=== PATIENT | male | born 1940 | race Two or more races ===

== ENCOUNTER 2018-08-12 17:51 | Inpatient (IN) | payer MEDICARE, MEDICAID ==
[~2018-08-12] VITALS: Ht 188 cm; Wt 56.7 kg
--- NOTE | 2018-08-12 18:01 | NUR ---
BIB friend for psych eval, increase agitation, visual hallucination per friend's report. PT WILL NOT ANSWER ANY QUESTIONS. LEFT URINAL TO COLLECT SAMPLE. SKIN INTACT, NO ACUTE DISTRESS NOTED. READY FOR EVAL.
--- NOTE | 2018-08-12 18:35 | NUR ---
Called cleaner housekeeping for a sitter, not sitter available at this time.
[2018-08-12 19:04] LABS: CALCIUM, SERUM 9.6 mg/dL (8.5-10.1); CARBON DIOXIDE 25 mmol/L (21-32); CHLORIDE 104 mmol/L (98-107); CREATININE 1.4 mg/dL (0.6-1.3); GLUCOSE 81 mg/dL (74-106); POTASSIUM 3.8 mmol/L (3.5-5.1); SODIUM SERUM 144 mmol/L (136-145); UREA NITROGEN, BLOOD 29 mg/dL (7-18)
[2018-08-12 19:08] LABS: BASOPHILS % (AUTO) 0.7 % (0.0-2.0); EOSINOPHILS % (AUTO) 0.1 % (0.0-6.0); HEMATOCRIT 42 % (39-51); LYMPHOCYTES # (AUTO) 1.1 /CMM (0.8-4.8); LYMPHOCYTES % (AUTO) 17.4 % (20.0-44.0); MEAN CORPUSCULAR HGB CONC 33 g/dl (31.0-36.0); MEAN CORPUSCULAR VOLUME 93 fL (80-96); MONOCYTES # (AUTO) 0.7 /CMM (0.1-1.30); MONOCYTES % (AUTO) 10.4 % (2.0-12.0); NEUTROPHILS # (AUTO) 4.6 /CMM (1.8-8.9); NEUTROPHILS % (AUTO) 71.4 % (43.0-81.0); PLATELET COUNT (AUTO) 196 /CMM (150-450); RED BLOOD CELL COUNT(AUTO) 4.54 MIL/uL (4.5-6.0); WHITE BLOOD COUNT (AUTO) 6.5 K/uL (4.3-11.0)
[2018-08-12 19:10] LABS: ALANINE AMINOTRANSFERASE 28 U/L (12-78); ALBUMIN 3.5 g/dL (3.4-5.0); ALCOHOL, BLOOD < 3 mg/dL (0-0); ALKALINE PHOSPHATASE 87 U/L (46-116); ASPARTATE AMINOTRANSFERASE 28 U/L (15-37); BILIRUBIN,DIRECT 0.1 mg/dL (0.0-0.2); BILIRUBIN,TOTAL 0.8 mg/dL (0.2-1.0)
[2018-08-12 19:14] LABS: ACETAMINOPHEN < 2 ug/ml (10-30)
--- NOTE | 2018-08-12 19:48 | NUR ---
BREAK OFF WORKER WANTED FOR SITTER
--- NOTE | 2018-08-12 19:54 | NUR ---
BED 216
--- NOTE | 2018-08-12 20:16 | NUR ---
Patient is resting comfortably in bed with eyes closed. Easily aroused. VSS
--- NOTE | 2018-08-12 22:40 | NUR ---
REPORT GIVEN TO RN FOR 213-A
[2018-08-12] MEDS ORDERED: LORA0.5T PO (22:45)
[2018-08-12] MEDS ORDERED: PARO40TA4 PO (22:45)
[2018-08-12] MEDS ORDERED: METO25TA6 PO (22:45)
[2018-08-12] MEDS ORDERED: DIPH25CA46 PO (22:45)
[2018-08-12] MEDS ORDERED: FERR325T23 PO (22:45)
[2018-08-12] MEDS ORDERED: HYDR12.5 PO (22:45)
[2018-08-12] MEDS ORDERED: TEMA15CA PO (22:45)
[2018-08-12] MEDS ORDERED: RISP1TAB7 PO (22:45)
[2018-08-12] MEDS ORDERED: TENO300T5 PO (22:45)
[2018-08-12] MEDS ORDERED: DIVA500T4 PO (22:45)
[2018-08-12] MEDS ORDERED: MULT-659 PO (22:45)
[2018-08-12] MEDS ORDERED: QUET100T PO (22:45)
[2018-08-12] MEDS ORDERED: LEVE500T9 PO (22:45)
--- NOTE | 2018-08-12 23:30 | NUR ---
ADMITTED THIS 77 YEARS OLD MALE FROM E.R PATIENT WAS PUT ON 5150 HOLD DUE TO INCREASED AGITATIONS, TOWARDS STAFF REFUSING THE MEDICATIONS, GRAVELY DISABLE, PATIENT IS ALERT ORIENTED X 1 TO NAME ONLY DENIES ANY PAIN OR DISCOMFORT AT THIS TIME ON BED REST, PATIENT REFUSED TO SIGN THE CONSENT PAPER, ADVISEMENT EXPLAIN AND SERVE TO THE PATIENT WITH HOSPITAL POLICY. BODY ASSESSMENT IS DONE, NO OPEN WOUND NOTED ONLY PATIENT HAS A VERY DRY SKIN. PIC IS TAKEN AND PLACED IN CHART . ALL MEDS IN COMPUTER NEEDS TO BE RECON WILL CONTINUES TO MONITOR THE PATIENT FOR SAFETY AND FALL
--- NOTE | 2018-08-12 23:45 | NUR ---
GPS RN NOTE, PATIENT NEEDS MEDICATION RECONCILIATION. PAGED [facility] AND INFORMED BILYL PIEDRA OF MY FINDINGS. BILLY PIEDRA SAID HE WILL APPROVE PATIENT MEDICATION IN THE A.M.. ALL ORDERS NOTED AND CARRIED OUT. WILL CONTINUE TO MONITOR THIS PATIENT.
[2018-08-13] MEDS ORDERED: ACETAMINOPHEN 325 MG TABLET PO PRN (00:30)
[2018-08-13] MEDS ORDERED: LORAZEPAM 0.5 MG TABLET PO PRN (00:30)
[2018-08-13] MEDS ORDERED: MAGNESIUM HYDROXIDE 30 ML UDC PO PRN (00:30)
[2018-08-13] MEDS ORDERED: MAG HYDROX/AL HYDROX/SIMETH 30 ML UDC PO PRN (00:30)
[2018-08-13 00:34] VITALS: BP 131/71
[2018-08-13] MEDS ORDERED: Z GUARD REMEDY 2 OZ OINT TP PRN (02:30)
[2018-08-13 08:00] VITALS: BP 111/59
[2018-08-13] MEDS: ENSURE ENLIVE CHOC 237 ML CAN PO SCH ×3 (08:53→17:00)
[2018-08-13] MEDS ORDERED: DIVA500T4 PO (09:14)
--- NOTE | 2018-08-13 12:06 | NUR ---
NOEMÍ contacted pts friend Gail [phone] for collateral information and discharge planning. Friend stated that pt rents a room in her home and that he has not contact with his family that lives in [place]. Gail stated that she has attempted to contact pts family to inform them of pts current hospitalization and they have not returned her calls/ Gail stated pt stopped taking his psych medications 2 months ago and that is when al his psychiatric symptoms began. Reynolds informed NOEMÍ that she does not know much of pts history and has been his friend for a couple of years. Gail wishes for pt to return to her home and she stated she will pick pt up when stable for discharge.
--- NOTE | 2018-08-13 12:44 | NUR ---
INITIAL DISCHARGE NOTE: Per friend Gail [phone] pt rents a room at her [place] [id number] [facility] [id number] and wishes for him to return. NOEMÍ will help form a safe and proper discharge in collaboration with .
[2018-08-13] MEDS: OLANZAPINE 5 MG/TAB.RAPDIS PO SCH ×2 (14:39→20:29)
[2018-08-13 16:00] VITALS: BP 129/93
--- NOTE | 2018-08-13 18:52 | NUR ---
GPS NOTE THE PATIENT NOTED TO HAVE POOR APPETITE, HOWEVER, DINNER TIME HE ATE COMPARABLY MORE THAN DURING AT BREAKFAST AND LUNCH. THE PATIENT ATE 30% DURING DINNER. THE PATIENT NEEDS ENCOURAGEMENT TO INCREASE PO INTAKE. UPCOMING SHIFT IS ENDORSED.
[2018-08-13] MEDS ORDERED: diphenhydrAMINE HCL 25 MG CAPSULE PO PRN (19:30)
[2018-08-13 20:00] VITALS: BP 99/56
[2018-08-13] MEDS: LEVETIRACETAM (250 MG) 250 MG TABLET PO SCH (21:16)
[2018-08-13 22:00] VITALS: BP 105/62
[2018-08-14] MEDS: ENSURE ENLIVE CHOC 237 ML CAN PO SCH ×3 (08:00→17:00)
[2018-08-14] MEDS: MULTIVITAMINS,THERAGRAN 1 UDTAB TABLET PO SCH (08:58)
[2018-08-14] MEDS: LEVETIRACETAM (250 MG) 250 MG TABLET PO SCH ×3 (08:59→20:42)
[2018-08-14] MEDS: TENOFOVIR DISOPROXIL FUMARATE 300 MG TABLET PO SCH (09:00)
[2018-08-14] MEDS: DIVALPROEX SODIUM 500 MG TABLET.DR PO SCH ×4 (09:00→17:00)
[2018-08-14] MEDS: METOPROLOL TARTRATE 25 MG TABLET PO SCH (09:00)
[2018-08-14] MEDS: FERROUS SULFATE (325 MG) 325 MG/TAB TABLET PO SCH ×4 (09:00→17:00)
[2018-08-14] MEDS: OLANZAPINE 5 MG/TAB.RAPDIS PO SCH ×3 (09:00→17:00)
[2018-08-14] MEDS: HYDROCHLOROTHIAZIDE 25 MG TABLET PO SCH (09:00)
--- NOTE | 2018-08-14 15:35 | NUR ---
SUPPORTIVE COUNSELING: Patient has not been eating and refusing medication. Pt is responding to internal stimuli he makes no eye contact when approached and grunts when SW turns his back at him. Pts mood is agitated/aggressive with blunted affect. Pts is uncooperative with treatment.
[2018-08-14 16:00] VITALS: BP 114/61
[2018-08-14 16:30] VITALS: BP 114/61
--- NOTE | 2018-08-14 16:45 | NUR ---
Pt is refusing medication, food and care, Dr Faustin in unit and it was made him aware, pt has orders for urine analysis, unable to obtained.
[2018-08-14 19:57] VITALS: BP 136/70
[2018-08-14] MEDS: TEMAZEPAM 7.5 MG CAPSULE PO PRN (20:42)
[2018-08-15 08:00] VITALS: BP 105/73
[2018-08-15] MEDS: ENSURE ENLIVE CHOC 237 ML CAN PO SCH ×3 (08:00→17:00)
[2018-08-15] MEDS: MULTIVITAMINS,THERAGRAN 1 UDTAB TABLET PO SCH (09:00)
[2018-08-15] MEDS: METOPROLOL TARTRATE 25 MG TABLET PO SCH (09:00)
[2018-08-15] MEDS: LEVETIRACETAM (250 MG) 250 MG TABLET PO SCH ×2 (09:00→21:50)
[2018-08-15] MEDS: OLANZAPINE 5 MG/TAB.RAPDIS PO SCH ×2 (09:00→17:00)
[2018-08-15] MEDS: TENOFOVIR DISOPROXIL FUMARATE 300 MG TABLET PO SCH (09:00)
[2018-08-15] MEDS: DIVALPROEX SODIUM 500 MG TABLET.DR PO SCH ×4 (09:00→17:00)
[2018-08-15] MEDS: HYDROCHLOROTHIAZIDE 25 MG TABLET PO SCH (09:00)
[2018-08-15] MEDS: FERROUS SULFATE (325 MG) 325 MG/TAB TABLET PO SCH ×4 (09:00→17:00)
--- NOTE | 2018-08-15 10:30 | NUR ---
ALERT AND ORIENTED X1.UP IN GABE CHAIR,BOTH PSYCH MD AND MEDICAL MD AWARE PT. REFUSING ALL MEDS.
[2018-08-15 16:00] VITALS: BP 114/83
--- NOTE | 2018-08-15 17:46 | NUR ---
REFUSED ALL MEDS TODAY.
--- NOTE | 2018-08-15 18:54 | NUR ---
STILL AWAITING TO OBTAIN UA.
--- NOTE | 2018-08-15 19:30 | NUR ---
GPS RN NOTE, RECEIVED PATIENT AWAKE AND IN GABE CHAIR, NO S/S OR COMPLAINTS OF PAIN AT THIS TIME. PATIENT IS DISPLAYING NO S/S OF APPARENT DISTRESS AT THIS TIME. PATIENT BREATHING IS UNLABORED WITH EQUAL RISE AND FALL OF THE CHEST. PATIENT IS ALERT AND ORIENTED X 1-2 ON ROOM AIR WITH A SPO2 OF 95%. PATIENT IS MED SELECTIVE, CONFUSED AT TIMES, DISORGANIZED, DEPRESSED, COOPERATIVE, UNKEPT AND NEEDS REORIENTATION. PATIENT DENIES SUICIDE AND HOMICIDAL IDEATIONS AT THIS TIME. PATIENT ASSISTED WITH TURNING AND REPOSITIONING Q2HR AND PRN FOR COMFORT AND CIRCULATION. PATIENT HAS NO NEEDS AT THIS TIME. PATIENT EDUCATED ON THE USE OF THE CALL CORBETT. PATIENT BED SIDE RAILS ARE UP X 2 FOR SAFETY, BED IS LOCKED AND LOW. WILL CONTINUE TO MONITOR AND MAINTAIN SAFETY Q15 MIN WITH THE HELP OF STAFF.
[2018-08-15 20:00] VITALS: BP 129/81
--- NOTE | 2018-08-15 21:50 | NUR ---
GPS RN NOTE, PATIENT REFUSED TO TAKE KEPPRA 500 PO Q12HR. OFFERED KEPPRA THREE TIME BUT STILL PATIENT REFUSED STATING, " NO I'M NOT TAKING ANYTHING WITH FOR YOU ". EDUCATED PATIENT ON THE RISKS AND BENEFITS OF TAKING AND REFUSING AFOREMENTIONED MEDICATION. WILL CONTINUE TO MONITOR THIS PATIENT.
[2018-08-15] MEDS: TEMAZEPAM 7.5 MG CAPSULE PO PRN (22:03)
--- NOTE | 2018-08-15 22:03 | NUR ---
GPS RN NOTE, PATIENT REFUSED TO TAKE RESTORIL 7.5 MG PO HS PRN. OFFERED RESTORIL THREE TIME BUT STILL PATIENT REFUSED STATING, " I'M NOT TAKING ANY MEDICATION FROM YOU ". EDUCATED PATIENT ON THE RISKS AND BENEFITS OF TAKING AND REFUSING AFOREMENTIONED MEDICATION. WILL CONTINUE TO MONITOR THIS PATIENT.
[2018-08-16 06:29] LABS: BASOPHILS % (AUTO) 0.4 % (0.0-2.0); EOSINOPHILS % (AUTO) 0.1 % (0.0-6.0); HEMATOCRIT 40 % (39-51); HEMOGLOBIN 13.3 g/dL (13.5-17.5); LYMPHOCYTES # (AUTO) 1.2 /CMM (0.8-4.8); LYMPHOCYTES % (AUTO) 27.6 % (20.0-44.0); MEAN CORPUSCULAR HGB CONC 33 g/dl (31.0-36.0); MEAN CORPUSCULAR VOLUME 93 fL (80-96); MONOCYTES # (AUTO) 0.5 /CMM (0.1-1.30); MONOCYTES % (AUTO) 10.5 % (2.0-12.0); NEUTROPHILS # (AUTO) 2.7 /CMM (1.8-8.9); NEUTROPHILS % (AUTO) 61.4 % (43.0-81.0); PLATELET COUNT (AUTO) 221 /CMM (150-450); RED BLOOD CELL COUNT(AUTO) 4.35 MIL/uL (4.5-6.0); WHITE BLOOD COUNT (AUTO) 4.3 K/uL (4.3-11.0)
[2018-08-16 06:43] LABS: ALANINE AMINOTRANSFERASE 25 U/L (12-78); ALBUMIN 3.3 g/dL (3.4-5.0); ALKALINE PHOSPHATASE 80 U/L (46-116); ASPARTATE AMINOTRANSFERASE 25 U/L (15-37); BILIRUBIN,TOTAL 0.8 mg/dL (0.2-1.0); CALCIUM, SERUM 9.6 mg/dL (8.5-10.1); CARBON DIOXIDE 29 mmol/L (21-32); CHLORIDE 104 mmol/L (98-107); CREATININE 1.7 mg/dL (0.6-1.3); GLUCOSE 106 mg/dL (74-106); MAGNESIUM 2.1 mg/dL (1.8-2.4); PHOSPHORUS 3.2 mg/dL (2.5-4.9); POTASSIUM 3.8 mmol/L (3.5-5.1); SODIUM SERUM 142 mmol/L (136-145); TOTAL PROTEIN, SERUM 8.1 g/dL (6.4-8.2); UREA NITROGEN, BLOOD 36 mg/dL (7-18)
[2018-08-16 06:45] LABS: CREATINE KINASE, TOTAL 67 U/L (39-308)
[2018-08-16 08:00] VITALS: BP 119/72
[2018-08-16] MEDS: ENSURE ENLIVE CHOC 237 ML CAN PO SCH ×3 (08:00→17:00)
--- NOTE | 2018-08-16 08:56 | NUR ---
RN NOTES PT REFUSING ALL MEDICATION AT THIS TIME. WILL CONTINUE TO FOLLOW UP.
[2018-08-16] MEDS: HYDROCHLOROTHIAZIDE 25 MG TABLET PO SCH (09:00)
[2018-08-16] MEDS: DIVALPROEX SODIUM 500 MG TABLET.DR PO SCH ×3 (09:00→17:00)
[2018-08-16] MEDS: TENOFOVIR DISOPROXIL FUMARATE 300 MG TABLET PO SCH (09:00)
[2018-08-16] MEDS: LEVETIRACETAM (250 MG) 250 MG TABLET PO SCH ×2 (09:00→21:00)
[2018-08-16] MEDS: OLANZAPINE 5 MG/TAB.RAPDIS PO SCH ×2 (09:00→17:00)
[2018-08-16] MEDS: MULTIVITAMINS,THERAGRAN 1 UDTAB TABLET PO SCH (09:00)
[2018-08-16] MEDS: METOPROLOL TARTRATE 25 MG TABLET PO SCH (09:00)
[2018-08-16] MEDS: FERROUS SULFATE (325 MG) 325 MG/TAB TABLET PO SCH ×3 (09:00→17:00)
--- NOTE | 2018-08-16 12:21 | NUR ---
RN NOTES INFORMED JOHN RASMUSSEN NP. PT PO INTAKE DECREASED, PATIENT REFUSING ALL MEDICATIONS, AND INCREASED BUN. NO NEW ORDERS AT THIS TIME.
[2018-08-16] MEDS ORDERED: IV NS 0.9% 1,000 ML IV PRN (13:00)
[2018-08-16 16:00] VITALS: BP 117/71
--- NOTE | 2018-08-16 19:30 | NUR ---
GPS RN NOTE, RECEIVED PATIENT AWAKE AND IN GABE CHAIR, NO S/S OR COMPLAINTS OF PAIN AT THIS TIME. PATIENT IS DISPLAYING NO S/S OF APPARENT DISTRESS AT THIS TIME. PATIENT BREATHING IS UNLABORED WITH EQUAL RISE AND FALL OF THE CHEST. PATIENT IS ALERT AND ORIENTED X 1-2 ON ROOM AIR WITH A SPO2 OF 95%. PATIENT IS REFUSING, CONFUSED AT TIMES, DISORGANIZED, DEPRESSED, COOPERATIVE, UNKEPT AND NEEDS REORIENTATION. PATIENT DENIES SUICIDE AND HOMICIDAL IDEATIONS AT THIS TIME. PATIENT ASSISTED WITH TURNING AND REPOSITIONING Q2HR AND PRN FOR COMFORT AND CIRCULATION. PATIENT HAS NO NEEDS AT THIS TIME. PATIENT EDUCATED ON THE USE OF THE CALL CORBETT. PATIENT BED SIDE RAILS ARE UP X 2 FOR SAFETY, BED IS LOCKED AND LOW. WILL CONTINUE TO MONITOR AND MAINTAIN SAFETY Q15 MIN WITH THE HELP OF STAFF.
--- NOTE | 2018-08-16 19:35 | NUR ---
GPS RN NOTE, PATIENT IS ATTEMPTING TO PULL OUT IV LINE THAT IS MEDICALLY NECESSARY FOR TREATMENT. ATTEMPTED HIDING IV LINE, REORIENTATION, AND INCREASE MONITORING. BUT STILL PATIENT IS ATTEMPTING TO PULL OUT IV LINE THAT IS MEDICALLY NECESSARY FOR TREATMENT. PAGED [facility] AND INFORMED RUPINDER PIEDRA OF MY FINDINGS. RUPINDER PIEDRA ORDERED ACUTE MEDICAL RESTRAINTS. RIGHT AND LEFT SOFT WRIST RESTRAINTS APPLIED TO PATIENT. NEXT OF KIN LESLIE WRIGHT INFORMED. ALL ORDERS NOTED AND CARRIED. WILL CONTINUE TO MONITOR THIS PATIENT.
[2018-08-16 19:39] VITALS: BP 120/43
--- NOTE | 2018-08-16 21:00 | NUR ---
GPS RN NOTE, PATIENT REFUSED TO HAVE PICTURES TAKEN TODAY. EDUCATED PATIENT ON HOSPITAL POLICY OF TAKING PICTURES. WILL CONTINUE TO MONITOR THIS PATIENT.
--- NOTE | 2018-08-16 21:34 | NUR ---
GPS RN NOTE, PATIENT REFUSED TO TAKE KEPPRA 500 PO Q12HR. OFFERED KEPPRA THREE TIME BUT STILL PATIENT REFUSED STATING, " NO I'M NOT TAKING ANYTHING MEDICATION ". EDUCATED PATIENT ON THE RISKS AND BENEFITS OF TAKING AND REFUSING AFOREMENTIONED MEDICATION. WILL CONTINUE TO MONITOR THIS PATIENT.
[2018-08-16 23:04] LABS: CREATININE, URINE 299.4 MG/DL (30.0-125.0); URINE TOTAL PROTEIN 47.1 mg/dL (0-11.9)
[2018-08-16 23:09] LABS: APPEARANCE,URINE CLEAR (CLEAR); BILIRUBIN,URINE 1+ (NEGATIVE); BLOOD, URINE NEGATIVE Ery/uL (NEGATIVE); COLOR,URINE DARK YELLO (YELLOW); KETONES,URINE TRACE (NEGATIVE); LEUKOCYTE ESTERASE ,URINE NEGATIVE (NEGATIVE); NITRITE, URINE NEGATIVE (NEGATIVE); PROTEIN,URINE TRACE mg/dl (NEGATIVE); UGLUCOSE NEGATIVE (NEGATIVE); UROBILINOGEN,URINE 0.2 EU/dL (0.2)
[2018-08-16 23:15] LABS: BACTERIA,URINE None seen /HPF (None Seen); EOSINOPHIL,URINE None Seen; RBC,URINE 0-2 /HPF (0-2); SQUAMOUS EPITHELIAL CELL,UR Few /HPF (None Seen); WBC,URINE 0-2 /HPF (0-3)
--- NOTE | 2018-08-16 23:43 | NUR ---
GPS RN NOTE, PATIENT NO LONGER MEETS CLINICAL JUSTIFICATION FOR RESTRAINTS. RESTRAINTS DISCONTINUED. WILL CONTINUE TO MONITOR THIS PATIENT.
[2018-08-17 08:00] VITALS: BP 117/59
[2018-08-17] MEDS: ENSURE ENLIVE CHOC 237 ML CAN PO SCH ×2 (08:00→12:00)
[2018-08-17] MEDS: FERROUS SULFATE (325 MG) 325 MG/TAB TABLET PO SCH ×2 (08:42→13:00)
[2018-08-17] MEDS: HYDROCHLOROTHIAZIDE 25 MG TABLET PO SCH (08:42)
[2018-08-17] MEDS: DIVALPROEX SODIUM 500 MG TABLET.DR PO SCH ×2 (08:42→13:00)
[2018-08-17 08:43] VITALS: BP 117/59
[2018-08-17] MEDS: METOPROLOL TARTRATE 25 MG TABLET PO SCH (08:43)
[2018-08-17] MEDS: LEVETIRACETAM (250 MG) 250 MG TABLET PO SCH (08:43)
[2018-08-17] MEDS: MULTIVITAMINS,THERAGRAN 1 UDTAB TABLET PO SCH (08:44)
[2018-08-17] MEDS: OLANZAPINE 5 MG/TAB.RAPDIS PO SCH (08:44)
[2018-08-17] MEDS: TENOFOVIR DISOPROXIL FUMARATE 300 MG TABLET PO SCH (08:44)
[2018-08-17 08:45] LABS: CALCIUM, SERUM 10.3 mg/dL (8.5-10.1); CARBON DIOXIDE 27 mmol/L (21-32); CHLORIDE 108 mmol/L (98-107); CREATININE 1.7 mg/dL (0.6-1.3); GLUCOSE 84 mg/dL (74-106); MAGNESIUM 2.3 mg/dL (1.8-2.4); PHOSPHORUS 4.2 mg/dL (2.5-4.9); POTASSIUM 5.9 mmol/L (3.5-5.1); SODIUM SERUM 146 mmol/L (136-145); UREA NITROGEN, BLOOD 48 mg/dL (7-18)
[2018-08-17 08:49] LABS: BASOPHILS % (AUTO) 0.5 % (0.0-2.0); EOSINOPHILS % (AUTO) 0.1 % (0.0-6.0); HEMATOCRIT 38 % (39-51); HEMOGLOBIN 12.8 g/dL (13.5-17.5); LYMPHOCYTES # (AUTO) 1.4 /CMM (0.8-4.8); LYMPHOCYTES % (AUTO) 29.3 % (20.0-44.0); MEAN CORPUSCULAR HGB CONC 33 g/dl (31.0-36.0); MEAN CORPUSCULAR VOLUME 93 fL (80-96); MONOCYTES # (AUTO) 0.8 /CMM (0.1-1.30); MONOCYTES % (AUTO) 15.2 % (2.0-12.0); NEUTROPHILS # (AUTO) 2.7 /CMM (1.8-8.9); NEUTROPHILS % (AUTO) 54.9 % (43.0-81.0); PLATELET COUNT (AUTO) 206 /CMM (150-450); RED BLOOD CELL COUNT(AUTO) 4.12 MIL/uL (4.5-6.0); WHITE BLOOD COUNT (AUTO) 4.9 K/uL (4.3-11.0)
[2018-08-17] MEDS ORDERED: SODIUM POLYSTYRENE SULFONATE 15 G/60 ML BOTTLE PO ONE (10:00)
[2018-08-17 10:13] LABS: LYMPHOCYTES % (MANUAL) 30 % (16-48); MONOCYTES % (MANUAL) 21 % (0-11.0); NEUTROPHILS % (MANUAL) 49 (42-76)
--- NOTE | 2018-08-17 11:08 | NUR ---
RN-CO: NOTIFIED DR PATE REGARDING THE BUN 48 AND K LEVEL OF 5.9. MD ORDERED TO DISCHARGE PATIENT TO TELEMETRY AND CONTINUE LEGAL HOLD.
--- NOTE | 2018-08-17 13:47 | NUR ---
RN NOTE:PATIENT SEEN BY CIERA DE LOS SANTOS WITH NEW ORDER TO DISCHARGE TO TELEMETRY NOTIFIED PATIENT DISCHARGE WITH 14 DAYS HOLD AND SITTER TO ROOM 310 REPORT GIVEN TO JENNIFER RANGEL ALL BELONGINGS RETURNED TO PATIENT .
[2018-08-17] MEDS ORDERED: OLAN7.5T3 PO (15:39)
[2018-08-17] MEDS ORDERED: ACET-868 PO (15:39)
[2018-08-17] MEDS ORDERED: MULT-24 PO (15:39)
[2018-08-17] MEDS ORDERED: LACT-246 PO (15:39)
[2018-08-17] MEDS ORDERED: ALLA266C2 TP (15:39)
[2018-08-17] MEDS ORDERED: MAGN400O6 PO (15:39)
[2018-08-17] MEDS ORDERED: TEMA7.5C12 PO (15:39)
[2018-08-17] MEDS ORDERED: MAG30ORA PO (15:39)
[2018-08-18 08:07] LABS: *SPE A/G RATIO 0.8 (0.7-1.7); *SPE ALBUMIN 3.3 g/dL (2.9-4.4); *SPE ALPHA-1-GLOBULIN 0.3 g/dL (0.0-0.4); *SPE ALPHA-2-GLOBULIN 0.7 g/dL (0.4-1.0); *SPE BETA GLOBULIN 0.9 g/dL (0.7-1.3); *SPE GLOBULIN, TOTAL 4.1 g/dL (2.2-3.9); *SPE M-SPIKE 0.8 g/dL (Not Observed); *SPEGAMMA GLOBULIN 2.2 g/dL (0.4-1.8)
--- NOTE | 2018-08-18 08:17 | NUR ---
DISCHARGE NOTE: Pt was discharged to the Telemetry Unit due to Hyperkalemia on 08/17/18. Pt remains on a 5250.
== END 2018-08-17 14:00 | disposition short-term general hospital (02) | DRG 885 ==
LOC: ER 17:59 → GPS 22:03
PROVIDERS: ADMIT Psychiatry & Neurology Psychiatry; ATTEND Nurse Practitioner Acute Care
DX: F20.0 Paranoid schizophrenia (principal); N18.9 Chronic kidney disease, unspecified; N17.0 Acute kidney failure with tubular necrosis; E44.0 Moderate protein-calorie malnutrition; R64 Cachexia; Z68.1 Body mass index [BMI] 19.9 or less, adult; F29 Unspecified psychosis not due to a substance or known physiological condition; I12.9 Hypertensive chronic kidney disease with stage 1 through stage 4 chronic kidney disease, or unspecified chronic kidney disease; E87.5 Hyperkalemia; F32.9 Major depressive disorder, single episode, unspecified; F41.9 Anxiety disorder, unspecified; R32 Unspecified urinary incontinence; R41.82 Altered mental status, unspecified; F03.90 Unspecified dementia, unspecified severity, without behavioral disturbance, psychotic disturbance, mood disturbance, and anxiety; M62.84 Sarcopenia; Z91.14 Patient's other noncompliance with medication regimen
CPT/HCPCS: 36415; 80048-TC; 80053-TC; 80076-TC; 81000-TC; 82550-TC; 82570-TC; 83735-TC; 83970; 84100-TC; 84155; 84155-TC; 84165; 84300-TC; 85025-TC; 87081-TC; A4349; A6402; G0480; J7030

== ENCOUNTER 2018-08-17 12:38 | Inpatient (IN) | payer MEDICARE, MEDICAID ==
[~2018-08-17] VITALS: Ht 188 cm; Wt 56.3 kg
[~2018-08-17 12:38] MED LIST: DIPH25CA46 PO; DIVA500T4 PO; FERR325T23 PO; HYDR12.5 PO; LEVE500T9 PO; LORA0.5T PO; METO25TA6 PO; MULT-659 PO; TENO300T5 PO
--- NOTE | 2018-08-17 14:00 | NUR ---
YARD CALLER NOTES PATIENT ADMITTED FROM GPS 77 MALE ON Dx.OF HYPERKALEMIA TELE. TELE MONITOR ON SR-100. PATIENT ON 5250 HOLD, REFUSING EAT AND DRINK. PATIENT VERY LABILE, PARANOID, DELUSIONAL HEARING VOICES. PATIENT WAS COMPLAINING OF PAIN BY UNABLE TO VERBALIZED WHERE. V/S TAKEN BP -137/71, P-103, R-20, T-97.7, O2-95 ROOM AIR. SKIN ASSESSMENT DONE DRY SCALY SKIN, ALSO PATIENT HAS EDEMA BILATERAL LOWER FOOTS, AND UPPER CHEST. NEEDS ATTENDED AND ANTICIPATED, DVT PUMP ON. DR SOFIA AWARE OF NEW PATIENT AND MEDICATION. 1:1 SITTER NEXT TO THE BED FOR SAFETY. CALL LIGHT WITHIN TO REACH. CONTINUED MONITORING.
[2018-08-17 14:34] VITALS: BP 137/71
--- NOTE | 2018-08-17 15:00 | NUR ---
RN NOTES PATIENT ON SOFT RESTRAIN BECAUSE OF TRYING TO PULL IV ACCESS, AND CLIMBING OUT OF BED. INFUSING D5 1/2 NS AT 75 ML/HR INTACT ON RIGHT AC AREA. PATIENT VERY PARANOID, YELLING, ON O2-2L NC, CHECKED CIRCULATION Q 2 HR. 1:1 SITTER NEXT TO THE BED FOR SAFETY. CONTINUED MONITORING.
[2018-08-17] MEDS ORDERED: ACET-868 PO (15:39)
[2018-08-17] MEDS ORDERED: TEMA7.5C12 PO (15:39)
[2018-08-17] MEDS ORDERED: MAG30ORA PO (15:39)
[2018-08-17] MEDS ORDERED: MAGN400O6 PO (15:39)
[2018-08-17] MEDS ORDERED: ALLA266C2 TP (15:39)
[2018-08-17] MEDS ORDERED: MULT-24 PO (15:39)
[2018-08-17] MEDS ORDERED: LACT-246 PO (15:39)
[2018-08-17] MEDS ORDERED: OLAN7.5T3 PO (15:39)
[2018-08-17] MEDS ORDERED: ACETAMINOPHEN 325 MG TABLET PO PRN (17:00)
[2018-08-17] MEDS: ENSURE ENLIVE 237 ML LIQUID (VANILLA) PO SCH (17:00)
[2018-08-17] MEDS: DIVALPROEX SODIUM 500 MG TABLET.DR PO SCH (17:00)
[2018-08-17] MEDS ORDERED: MAG HYDROX/AL HYDROX/SIMETH 30 ML UDC PO PRN (17:00)
[2018-08-17] MEDS ORDERED: HYDROCODONE/APAP 5/325MG 1 EACH TABLET PO PRN (17:00)
[2018-08-17] MEDS ORDERED: ZOLPIDEM TARTRATE 5 MG TABLET PO PRN (17:00)
[2018-08-17] MEDS ORDERED: Z GUARD REMEDY 2 OZ OINT TP PRN (17:00)
[2018-08-17] MEDS ORDERED: MAGNESIUM HYDROXIDE 30 ML UDC PO PRN (17:00)
[2018-08-17] MEDS ORDERED: ONDANSETRON HCL/PF 4 MG/2 ML VIAL IVP PRN (17:00)
--- NOTE | 2018-08-17 17:00 | NUR ---
RN NOTES PATIENT REFUSED 17OO SCHEDULED MEDICATION, ALSO REFUSED KAYEXALATE X1 ORDER, Dr. WILSON NOTIFIED NO NEW ORDER. PATIENT ALSO REFUSED EAT, OR DRINK, INFUSING D5 0.45 NS AT 75 ML/HR INTACT ON RIGHT AC AREA INTACT. DVT PUMP ON. 1;1 SITTER NEXT TO THE BED FOR SAFETY. CONTINUED MONITORING.
[2018-08-17] MEDS: IV D5/0.45 NACL 1,000 ML IV PRN (17:14)
[2018-08-17] MEDS: SODIUM POLYSTYRENE SULFONATE 15 G/60 ML BOTTLE PO ONE ×2 (18:04→18:23)
--- NOTE | 2018-08-17 18:30 | NUR ---
RN NOTES PATIENT IN THE BED TALKING SELF STILL TRYING TO GET OUT OF BED. BILATERAL UPPER SOFT WRIST RESTRAIN ON, CIRCULATION CHECKED. 1;1 SITTER NEXT TO THE BED FOR SAFETY. ENDORSED ONCOMING NURSE FOR PLAN OF CARE.
--- NOTE | 2018-08-17 19:30 | NUR ---
MANAGER GROUP OPENING NOTES: RECEIVED PT ON 2LPM VIA NC. PT HAS SITTER AT BEDSIDE. PT HAS BILATERAL SOFT WRIST RESTRAINTS WELL. PT BLABBERING AND TALKING AND SCREAMING NONSENSE. PT SCREAMING AND APPEARS TO BE AGITATED. PT HAS IV ON R AC #20G AND IS BEING INFUSED WITH IV D5 1/2 NS AT 75ML/HR. BED KEPT IN LOW, LOCKED POSITION, AND SIDE RAILS X 2UP. Addendum: 08/17/18 at 2053 by AMRYAM CARTER RN PT ON TELE BOX AND READING SHOWS SR 86.
--- NOTE | 2018-08-17 19:35 | NUR ---
WINDOW GLAZIER HELPER NOTES: SPOKE WITH DR. VIRIDIANA Velasquez AND INFORMED HIM THAT PT HAS BEEN REFUSING PO MEDS, KAYEX. GOT ORDER FOR PSYCH CONSULT. ALSO, OK TO CHANGE KEPPRA 500MG PO TO KEPPRA IV.
[2018-08-17 20:00] VITALS: BP 176/87
[2018-08-17] MEDS ORDERED: LEVETIRACETAM (250 MG) 250 MG TABLET PO SCH (21:00)
--- NOTE | 2018-08-17 21:19 | NUR ---
EXECUTIVE ASSISTANT TO PRESIDENT NOTES: FILIBERTO CERVANTES AT BEDSIDE. GOT ORDER FOR ALBUTEROL 10MG X1 TX; ALSO GOT ORDER FORONE TIME BENADRYL 50MG, ATIVAN 2MG, AND HALDOL 5MG IM X1 FOR WHEN HE ACTS UP. ALSO, CHANGE TO TELE STATUS FOR NOW. Addendum: 08/17/18 at 2241 by MARYAM CARTER RN FILIBERTO CERVANTES AWARE OF BP 176/87 HR 113; Addendum: 08/17/18 at 2328 by MARYAM CARTER RN TELE STATUS FOR POTASSIUM BEING ELEVATED. Addendum: 08/17/18 at 2346 by MARYAM CARTER RN ORDER FOR ONE TIME BENADRYL 50MG, ATIVAN 2MG, HALDOL 5MG IM X 1 ONE PRN WHEN HE GETS AGITATED
[2018-08-17] MEDS: LEVETIRACETAM (500MG) 500 MG in IV NS 0.9% 100 ML IV SCH (21:25)
[2018-08-17] MEDS ORDERED: ALBUTEROL FS 2.5 MG/0.5 ML VIAL.NEB NEB ONE (21:30)
[2018-08-17] MEDS ORDERED: diphenhydrAMINE HCL 50 MG/ML VIAL IM ONE (22:00)
[2018-08-17] MEDS ORDERED: LORAZEPAM INJ 2 MG/ML VIAL IM ONE (22:00)
[2018-08-17] MEDS ORDERED: HALOPERIDOL LACTATE INJ 5 MG/ML VIAL IM ONE (22:00)
[2018-08-17 22:39] VITALS: BP 111/67
[2018-08-18] VITALS: BP 139/73
[2018-08-18 02:45] VITALS: BP 182/100
[2018-08-18] MEDS ORDERED: HALOPERIDOL LACTATE INJ 5 MG/ML VIAL ONE (02:52)
[2018-08-18] MEDS ORDERED: diphenhydrAMINE HCL 50 MG/ML VIAL ONE (02:53)
[2018-08-18] MEDS ORDERED: LORAZEPAM INJ 2 MG/ML VIAL ONE (02:54)
--- NOTE | 2018-08-18 03:07 | NUR ---
RELIGION DEPARTMENT CHAIR NOTES: PT VERY AGITATED, YELLING, AND TRYING TO ESCAPE FROM BILATERAL WRIST RESTRAINTS. "LET ME GO. I WANT TO GET OUT OF HERE." PT WAS ADMINISTERED BENADRYL 50MG, ATIVAN 2MG, AND ATIVAN 2MG IM. SITTER AT BEDSIDE. PT ON TELE BOX. WILL CONTINUE TO MONITOR PT. Addendum: 08/18/18 at 311 by MARYAM CARTER RN PT KICKING WELL. Addendum: 08/18/18 at 315 by MARYAM CARTER RN BENADRYL 50, ATIVAN 2MG, AND HALDOL LACTATE 5MG WERE OVERRODE BY CHARGE NURSE SINCE THE ORDER WAS FOR A PRN ONE TIME USE ONLY WHEN PT GETS REALLY AGITATED.
[2018-08-18 04:00] VITALS: BP 115/60
--- NOTE | 2018-08-18 05:42 | NUR ---
PRODUCTION ANALYST NOTES: MRSA FOR L NARE COLLECTED AND PLACED IN REFRIGERATOR.
[2018-08-18] MEDS: IV D5/0.45 NACL 1,000 ML IV PRN ×2 (05:54→22:13)
[2018-08-18 06:52] LABS: BASOPHILS % (AUTO) 0.4 % (0.0-2.0); EOSINOPHILS % (AUTO) 0.5 % (0.0-6.0); HEMATOCRIT 33 % (39-51); HEMOGLOBIN 10.8 g/dL (13.5-17.5); LYMPHOCYTES % (AUTO) 24.1 % (20.0-44.0); MEAN CORPUSCULAR HGB CONC 33 g/dl (31.0-36.0); MEAN CORPUSCULAR VOLUME 94 fL (80-96); MONOCYTES # (AUTO) 0.6 /CMM (0.1-1.30); MONOCYTES % (AUTO) 14.5 % (2.0-12.0); NEUTROPHILS # (AUTO) 2.5 /CMM (1.8-8.9); NEUTROPHILS % (AUTO) 60.5 % (43.0-81.0); PLATELET COUNT (AUTO) 196 /CMM (150-450); RED BLOOD CELL COUNT(AUTO) 3.48 MIL/uL (4.5-6.0); WHITE BLOOD COUNT (AUTO) 4.1 K/uL (4.3-11.0)
--- NOTE | 2018-08-18 07:04 | NUR ---
DURAL MECHANIC CLOSING NOTES: ALL NEEDS WERE ATTENDED AND ANTICIPATED FOR. PT KEPT CLEAN, DRY, AND COMFORTABLE. PT ON 2LPM VIA NC. SITTER AT BEDSIDE. PT ASLEEP AT THIS TIME. PT ON BILATERAL SOFT WRIST RESTRAINTS AND REAPPLIED AFTER BEING RELEASED SINCE 3AM. PT ON TELE BOX AND READING SHOWS SR 65 WITH PACS. CHEST ROOM SERVICE ASSOCIATE AT BEDSIDE. PT HAS IV ON R AC #20G AND IS BEING INFUSED WITH IV D 51/2 NS AT 75ML/HR. BED KEPT IN LOW, LOCKED POSITION, AND SIDE RAILS X 2UP. WILL ENDORSE TO AM NURSE FOR QUINTON.
--- NOTE | 2018-08-18 07:15 | NUR ---
NURSE WOUND CARE OPENING NOTE RECEIVED PATIENT IN BED. SLEEPING, RESPONDS TO PHYSICAL STIMULI BY MOANING. PATIENT HAD SEDATIVE MEDICATION DURING NIGHT DUE TO HIS COMBATIVE AND DESTRUCTIVE BEHAVIOR. PATIENT IN ON 2L O2 VIA NC. TOLERATING WELL. IN NO APPARENT DISTRESS OR DISCOMFORT AT THIS TIME, RESPIRATIONS EVEN AND UNLABORED. PATIENT IS OFF RESTRAINTS AT THIS TIME. WILL MONITOR FOR BEHAVIORAL CHANGES. SITTER AT BEDSIDE. ON TELE MONITOR WITH SR AND HR OF 65. RIGHT AC 20G IVC WITH FLUIDS RUNNING AT 75ML/HR. PATIENT KEPT CLEAN AND COMFORTABLE. ALL NEEDS ATTENDED, SAFETY MEASURES IN PLACE, BED IN LOW LOCKED POSITION, SIDE RAILS UP X2, CALL LIGHT WITHIN EASY REACH. WILL CONTINUE TO MONITOR.
[2018-08-18 07:18] LABS: CARBON DIOXIDE 27 mmol/L (21-32); CHLORIDE 108 mmol/L (98-107); CREATININE 1.4 mg/dL (0.6-1.3); GLUCOSE 80 mg/dL (74-106); PHOSPHORUS 3.5 mg/dL (2.5-4.9); POTASSIUM 3.4 mmol/L (3.5-5.1); SODIUM SERUM 145 mmol/L (136-145); UREA NITROGEN, BLOOD 41 mg/dL (7-18)
[2018-08-18 07:19] LABS: CHOLESTEROL 94 mg/dL (<200); HDL CHOLESTEROL 38 mg/dL (40-60); LDL 36 mg/dL (0-99); THYROID STIMULATING HORMONE 1.817 uIU/mL (0.358-3.74); TRIGLYCERIDES 92 mg/dL (30-150)
[2018-08-18 08:00] VITALS: BP 116/64
[2018-08-18] MEDS: METOPROLOL TARTRATE 25 MG TABLET PO SCH (08:47)
[2018-08-18] MEDS: TENOFOVIR DISOPROXIL FUMARATE 300 MG TABLET PO SCH (08:47)
[2018-08-18] MEDS: ENSURE ENLIVE 237 ML LIQUID (VANILLA) PO SCH ×3 (08:47→17:00)
[2018-08-18] MEDS: DIVALPROEX SODIUM 500 MG TABLET.DR PO SCH ×3 (08:47→17:00)
--- NOTE | 2018-08-18 09:20 | NUR ---
PATIENT IS SLEEPING AT THIS TIME. UNABLE TO TAKE MORNING MEDICATIONS. WILL CONTINUE TO MONITOR.
[2018-08-18] MEDS: LEVETIRACETAM (500MG) 500 MG in IV NS 0.9% 100 ML IV SCH ×2 (09:27→22:13)
[2018-08-18] MEDS ORDERED: POTASSIUM CHLORIDE 20 MEQ TAB.PRT.SR PO SCH (11:00)
[2018-08-18] MEDS: POTASSIUM CL. PREMIX PERIPHER. 50 ML IV SCH ×2 (12:38→14:10)
[2018-08-18 13:36] LABS: APPEARANCE,URINE SL CLOUDY (CLEAR); BILIRUBIN,URINE 1+ (NEGATIVE); BLOOD, URINE NEGATIVE Ery/uL (NEGATIVE); KETONES,URINE 1+ (NEGATIVE); LEUKOCYTE ESTERASE ,URINE NEGATIVE (NEGATIVE); NITRITE, URINE NEGATIVE (NEGATIVE); PROTEIN,URINE TRACE mg/dl (NEGATIVE); UGLUCOSE NEGATIVE (NEGATIVE); UROBILINOGEN,URINE 0.2 EU/dL (0.2)
[2018-08-18 13:37] LABS: COLOR,URINE DARK YELLOW (YELLOW)
[2018-08-18 13:40] LABS: BACTERIA,URINE Many /HPF (None Seen); RBC,URINE 0-2 /HPF (0-2); SQUAMOUS EPITHELIAL CELL,UR Few /HPF (None Seen)
[2018-08-18 16:00] VITALS: BP 98/54
[2018-08-18] MEDS: HALOPERIDOL 5 MG TABLET PO SCH (17:00)
[2018-08-18] MEDS: BENZTROPINE MESYLATE (1 MG) 1 MG TABLET PO SCH (17:00)
[2018-08-18] MEDS: BENZTROPINE MESYLATE (2MG/2ML) 2 MG/2 ML AMPUL IM PRN (17:21)
[2018-08-18] MEDS: HALOPERIDOL LACTATE INJ 5 MG/ML VIAL IM PRN (17:22)
--- NOTE | 2018-08-18 17:30 | NUR ---
PATIENT IS NOT COOPERATIVE. REFUSED TO TAKE PRESCRIBED ORAL MEDICATIONS. PER MD ORDER IM ALTERNATIVE MEDICATIONS ADMINISTERED INSTEAD. WILL CONTINUE TO MONITOR.
--- NOTE | 2018-08-18 18:09 | NUR ---
MS RN CLOSING NOTE PATIENT IN BED. SLEEPING, RESPONDS TO PHYSICAL STIMULI BY MOANING AND EYE OPENING. PATIENT IS ON 2L O2 VIA NC, TOLERATING WELL. IN NO APPARENT DISTRESS OR DISCOMFORT AT THIS TIME, RESPIRATIONS EVEN AND UNLABORED. PATIENT IS OFF RESTRAINTS AT THIS TIME. WILL MONITOR FOR BEHAVIORAL CHANGES. SITTER AT BEDSIDE. RIGHT AC 20G IVC WITH FLUIDS RUNNING AT 75ML/HR. PATIENT KEPT CLEAN AND COMFORTABLE. ALL NEEDS ATTENDED, ORDERS RENDERED, SAFETY MEASURES IN PLACE, BED IN LOW LOCKED POSITION, SIDE RAILS UP X2, CALL LIGHT WITHIN EASY REACH, WILL ENDORSE TO PM NURSE FOR QUINTON.
[2018-08-18 20:00] VITALS: BP 128/64
--- NOTE | 2018-08-18 20:00 | NUR ---
rn opening note pm. patient seen in bed. in no apparent distress. bed down locked sitter arben at the bedside. patient arousable to touch and voice. respirations even and unlabored spo2 96% on room air. will monitor for behavioral changes. iv infusign to right ac 20 gauge with no s/s of infiltration. will cont to monitor.
--- NOTE | 2018-08-19 06:30 | NUR ---
rn closing note. arben steven still at the bedside. patient still in bed with eyes closed in no apparent distress. condom cath fell off patient had 100 ml collected urine and 1 heavy diaper. ivf infusing with no s/s of infiltration. to right arm.
--- NOTE | 2018-08-19 07:30 | NUR ---
RECEIVED PT. THIS AM.ON1:1 SITTER.ON HOLD,SEEMS VERY PARANOID.SIDE RAILS UP IV INFUSING.
[2018-08-19 08:01] LABS: BASOPHILS % (AUTO) 0.1 % (0.0-2.0); EOSINOPHILS % (AUTO) 0.8 % (0.0-6.0); HEMATOCRIT 35 % (39-51); HEMOGLOBIN 11.6 g/dL (13.5-17.5); LYMPHOCYTES # (AUTO) 1.2 /CMM (0.8-4.8); LYMPHOCYTES % (AUTO) 31.8 % (20.0-44.0); MEAN CORPUSCULAR HGB CONC 34 g/dl (31.0-36.0); MEAN CORPUSCULAR VOLUME 94 fL (80-96); MONOCYTES # (AUTO) 0.6 /CMM (0.1-1.30); MONOCYTES % (AUTO) 15.6 % (2.0-12.0); NEUTROPHILS # (AUTO) 1.9 /CMM (1.8-8.9); NEUTROPHILS % (AUTO) 51.7 % (43.0-81.0); PLATELET COUNT (AUTO) 177 /CMM (150-450); RED BLOOD CELL COUNT(AUTO) 3.69 MIL/uL (4.5-6.0); WHITE BLOOD COUNT (AUTO) 3.7 K/uL (4.3-11.0)
[2018-08-19 08:27] LABS: CALCIUM, SERUM 8.6 mg/dL (8.5-10.1); CARBON DIOXIDE 26 mmol/L (21-32); CHLORIDE 107 mmol/L (98-107); CREATININE 1.1 mg/dL (0.6-1.3); GLUCOSE 105 mg/dL (74-106); MAGNESIUM 1.7 mg/dL (1.8-2.4); PHOSPHORUS 2.5 mg/dL (2.5-4.9); POTASSIUM 3.3 mmol/L (3.5-5.1); SODIUM SERUM 142 mmol/L (136-145); UREA NITROGEN, BLOOD 24 mg/dL (7-18)
[2018-08-19 09:00] VITALS: BP 125/70
[2018-08-19] MEDS: ENSURE ENLIVE 237 ML LIQUID (VANILLA) PO SCH ×3 (09:00→17:00)
[2018-08-19] MEDS: DIVALPROEX SODIUM 500 MG TABLET.DR PO SCH ×3 (09:00→17:00)
[2018-08-19] MEDS: METOPROLOL TARTRATE 25 MG TABLET PO SCH (09:00)
[2018-08-19] MEDS: TENOFOVIR DISOPROXIL FUMARATE 300 MG TABLET PO SCH (09:00)
[2018-08-19] MEDS: LEVETIRACETAM (500MG) 500 MG in IV NS 0.9% 100 ML IV SCH ×2 (09:03→21:31)
[2018-08-19] MEDS ORDERED: POTASSIUM CHLORIDE 20 MEQ TAB.PRT.SR PO SCH (10:00)
[2018-08-19 10:20] LABS: EOSINOPHILS % (MANUAL) 2 % (0-4); LYMPHOCYTES % (MANUAL) 26 % (16-48); MONOCYTES % (MANUAL) 12 % (0-11.0); NEUTROPHILS % (MANUAL) 60 (42-76)
[2018-08-19] MEDS: POTASSIUM CL. PREMIX PERIPHER. 50 ML IV SCH ×2 (11:11→12:42)
--- NOTE | 2018-08-19 11:30 | NUR ---
CONDOM CATH OFF AND REPLACED.FAIR OUTPUT
[2018-08-19] MEDS: Magnesium 1GM/D5W 100ML PREMIX 100 ML IV SCH ×2 (14:19→15:48)
[2018-08-19] MEDS: IV D5/0.45 NACL 1,000 ML IV PRN (14:35)
[2018-08-19] MEDS: HALOPERIDOL 5 MG TABLET PO SCH (17:00)
[2018-08-19] MEDS: BENZTROPINE MESYLATE (1 MG) 1 MG TABLET PO SCH (17:00)
--- NOTE | 2018-08-19 17:30 | NUR ---
IV INFUSING-REFUSING TO EAT.STATES WE ARE TRYING TO POISON HIM.REFUSED ALL PO MEDS TODAY.HAD MG AND POTASSIUM REPLACEMENTS.
[2018-08-19] MEDS: HALOPERIDOL LACTATE INJ 5 MG/ML VIAL IM PRN (17:43)
[2018-08-19] MEDS: BENZTROPINE MESYLATE (2MG/2ML) 2 MG/2 ML AMPUL IM PRN (17:44)
--- NOTE | 2018-08-19 17:51 | NUR ---
herbert givev im as pt.refused po form of med.
--- NOTE | 2018-08-19 20:00 | NUR ---
rn opening note pm. patient seen in bed. in no apparent distress. bed down locked sitter herve at the bedside. patient wake reoriented to room encouraged to eat drink, unopened juice box, glucerna and crackers placed at bedside along with pudding and jello unopened. patient states ,"I dont want any. respirations even and unlabored swill monitor for behavioral changes. iv infusing to right ac 20 gauge with no s/s of infiltration. will cont to monitor.
[2018-08-20] MEDS: IV D5/0.45 NACL 1,000 ML IV PRN (02:04)
--- NOTE | 2018-08-20 06:21 | NUR ---
rn closing note pm. patient seen in bed. in no apparent distress. bed down locked sitter herve at the bedside. condom catheter fell out. only collected 200 ml. diaper surrounding catheter is heavy and wet. condom catheter reapplied. patient awake reoriented to room encouraged to eat drink, unopened juice box, glucerna and crackers at bedside along with pudding and jello unopened. patient states ,"I dont want any. respirations even and unlabored will monitor for behavioral changes. iv infusing to right ac 20 gauge with no s/s of infiltration. will cont to monitor.
--- NOTE | 2018-08-20 07:35 | NUR ---
ms rn received on bed, awake,alert x1,not in any form of distress, respirations even and unlabored,no sob noted.w/ a sitter for safety and comfort.,will monitor patient.
[2018-08-20] MEDS: METOPROLOL TARTRATE 25 MG TABLET PO SCH (09:00)
[2018-08-20] MEDS: DIVALPROEX SODIUM 500 MG TABLET.DR PO SCH ×2 (09:00→13:00)
[2018-08-20] MEDS: LEVETIRACETAM (500MG) 500 MG in IV NS 0.9% 100 ML IV SCH (09:00)
[2018-08-20] MEDS: ENSURE ENLIVE 237 ML LIQUID (VANILLA) PO SCH ×2 (09:00→13:00)
[2018-08-20] MEDS: TENOFOVIR DISOPROXIL FUMARATE 300 MG TABLET PO SCH (09:00)
--- NOTE | 2018-08-20 09:00 | NUR ---
ms rn breakfast served, refused meds at this time.
--- NOTE | 2018-08-20 11:40 | NUR ---
ms rn was seen by jean claude wyatt/ moi to go to [facility],all needs attended.
[2018-08-20] MEDS ORDERED: HYDR-3972 PO (13:20)
[2018-08-20] MEDS ORDERED: BENZ2AMP3 IM ×2 (13:20→17:22)
[2018-08-20] MEDS ORDERED: BENZ1TAB7 PO (13:20)
[2018-08-20] MEDS ORDERED: MAGN400O6 PO ×2 (13:20→17:32)
[2018-08-20] MEDS ORDERED: HALO5TAB8 PO (13:20)
[2018-08-20] MEDS ORDERED: HALO5VIA9 IM (13:20)
[2018-08-20] MEDS ORDERED: MAG30ORA PO (13:20)
[2018-08-20] MEDS ORDERED: ZOLP5TAB2 PO (13:20)
--- NOTE | 2018-08-20 13:30 | NUR ---
ms rn sleeping,no distress noted.
--- NOTE | 2018-08-20 14:00 | NUR ---
ms rn patient is refusing everything including meds.
--- NOTE | 2018-08-20 16:50 | NUR ---
ms rn patient transferred to [facility], w/ orders,all needs attended.
[2018-08-20] MEDS ORDERED: BENZ0.5T43 PO (17:22)
[2018-08-20] MEDS ORDERED: HALO5TAB IM (17:22)
[2018-08-20] MEDS ORDERED: HALO5TAB PO (17:22)
[2018-08-20] MEDS ORDERED: DIVA-78 PO (17:22)
[2018-08-20] MEDS ORDERED: ALLA266C2 TP (17:32)
[2018-08-20] MEDS ORDERED: TENO300T5 PO (17:32)
[2018-08-20] MEDS ORDERED: MAG355OR18 PO (17:32)
[2018-08-20] MEDS ORDERED: ZOLP5TAB8 PO (17:32)
[2018-08-20] MEDS ORDERED: LACT-246 PO (17:32)
[2018-08-20] MEDS ORDERED: HYDR-4384 PO (17:32)
[2018-08-20] MEDS ORDERED: METO25TA6 PO (17:32)
[2018-08-20] MEDS ORDERED: HALO5VIA12 IM (17:45)
== END 2018-08-20 17:00 | DRG 640 ==
LOC: MED 12:38 → TELE 16:43 → MED 08-18 11:17
DX: E87.5 Hyperkalemia (principal); N17.0 Acute kidney failure with tubular necrosis; E44.0 Moderate protein-calorie malnutrition; F20.0 Paranoid schizophrenia; R64 Cachexia; E87.0 Hyperosmolality and hypernatremia; F32.9 Major depressive disorder, single episode, unspecified; F41.9 Anxiety disorder, unspecified; F29 Unspecified psychosis not due to a substance or known physiological condition; I12.9 Hypertensive chronic kidney disease with stage 1 through stage 4 chronic kidney disease, or unspecified chronic kidney disease; N18.9 Chronic kidney disease, unspecified; E86.0 Dehydration; R62.7 Adult failure to thrive; Z73.6 Limitation of activities due to disability; F03.90 Unspecified dementia, unspecified severity, without behavioral disturbance, psychotic disturbance, mood disturbance, and anxiety; M62.84 Sarcopenia; Z91.14 Patient's other noncompliance with medication regimen; R32 Unspecified urinary incontinence
CPT/HCPCS: 36415; 71045-TC; 80048-TC; 80061-TC; 81000-TC; 83735-TC; 84100-TC; 84443-TC; 85025-TC; 87081-TC; 87086-TC; 94799-TC; 97112-TC; 97530-TC; A4349; G0378; J0515; J1200; J1630; J1953; J2060; J3475; J3480; J3490; J7030; J7040

== ENCOUNTER 2018-08-20 16:39 | Inpatient (IN) | payer MEDICARE, MEDICAID ==
[~2018-08-20] VITALS: Ht 188 cm; Wt 56.2 kg
[2018-08-20 08:00] VITALS: BP 106/76
[2018-08-20 16:00] VITALS: BP 157/75
[~2018-08-20 16:39] MED LIST changes: +ACET-868 PO; +ALLA266C2 TP; +BENZ1TAB7 PO; +BENZ2AMP3 IM; +HALO5TAB8 PO; +HALO5VIA9 IM; +HYDR-3972 PO; +LACT-246 PO; +MAG30ORA PO; +MAGN400O6 PO; +MULT-24 PO; -MULT-659 PO; +OLAN7.5T3 PO; +TEMA7.5C12 PO; +ZOLP5TAB2 PO
[2018-08-20] MEDS ORDERED: TEMAZEPAM 7.5 MG CAPSULE PO PRN (17:00)
[2018-08-20] MEDS ORDERED: MAGNESIUM HYDROXIDE 30 ML UDC PO PRN (17:00)
[2018-08-20] MEDS ORDERED: ACETAMINOPHEN 325 MG TABLET PO PRN (17:00)
[2018-08-20] MEDS ORDERED: MAG HYDROX/AL HYDROX/SIMETH 30 ML UDC PO PRN (17:00)
--- NOTE | 2018-08-20 17:00 | NUR ---
TRANSFER CAR OPERATOR NOTES PT TRANSFERRED FROM [facility] VIA [facility]. REPORT RECEIVED FROM JUAN CARLOS DAILEY. PT CONFUSED, AND PARANOID. PT UNABLE TO GIVE HISTORY OR INFORMATION. PT REFUSED SKIN INSPECTION. PT ON 5250 HOLD. ALL PATIENT BELONGINGS ACCOUNTED FOR AND DOCUMENTED. PATIENT RIGHTS BOOKLET GIVEN. WILL CONTINUE TO MONITOR.
--- NOTE | 2018-08-20 17:15 | NUR ---
RN-CO: PATIENT IS AGITATED, TRIED TO CLIMB OUT OF BED, AND HURT STAFF, REFUSED PO ATIVAN. 1:1 SITTER RECOMMENDED.
--- NOTE | 2018-08-20 17:15 | NUR ---
RN-CO: DR PONCE NOTIFIED REGARDING ADMISSION. GAVE ADMITTING ORDER.
[2018-08-20] MEDS ORDERED: HALO5TAB IM (17:22)
[2018-08-20] MEDS ORDERED: DIVA-78 PO (17:22)
[2018-08-20] MEDS ORDERED: BENZ2AMP3 IM (17:22)
[2018-08-20] MEDS ORDERED: HALO5TAB PO (17:22)
[2018-08-20] MEDS ORDERED: BENZ0.5T43 PO (17:22)
[2018-08-20] MEDS ORDERED: HYDR-4384 PO (17:32)
[2018-08-20] MEDS ORDERED: ZOLP5TAB8 PO (17:32)
[2018-08-20] MEDS ORDERED: MAG355OR18 PO (17:32)
[2018-08-20] MEDS ORDERED: LACT-246 PO (17:32)
[2018-08-20] MEDS ORDERED: METO25TA6 PO (17:32)
[2018-08-20] MEDS ORDERED: TENO300T5 PO (17:32)
[2018-08-20] MEDS ORDERED: MAGN400O6 PO (17:32)
[2018-08-20] MEDS ORDERED: ALLA266C2 TP (17:32)
[2018-08-20] MEDS ORDERED: HALO5VIA12 IM (17:45)
[2018-08-21 08:00] VITALS: BP 101/68
[2018-08-21] MEDS: METOPROLOL TARTRATE 25 MG TABLET PO SCH (08:19)
--- NOTE | 2018-08-21 08:28 | NUR ---
Psychosocial Note: I, Anupama Kay OPENER [employer], attest to the patients previous psychosocial information dated August 13, 2018 Update On Events leading to Admission and Discharge Plan: Pt has returned to the hospital within 3 days of his discharge to the Medical Floor due to Hyperkalemia. The current plan is to stabilize patient on his medications which he has been refusing to reduce symptoms of ana and safely discharge him back home or to a half-way facility. While on the medical floor pt had been refusing all medications. Pt appeared to be ambulatory, well-groomed and appropriately dressed. Pts mood is labile with blunted affect. Pt appears to be responding to internal stimuli as pt will not answer questions and is selectively mute. NOEMÍ spoke with pts friend and stephane Reynolds [phone] who stated she needs to see him before being able to make a decision whether he is able to return back to her home or not. NOEMÍ will work with pts friend and the MD regarding appropriate discharge planning. NOEMÍ will form a safe and proper discharge.
[2018-08-21] MEDS: TENOFOVIR DISOPROXIL FUMARATE 300 MG TABLET PO SCH (08:54)
[2018-08-21] MEDS: ENSURE ENLIVE 237 ML LIQUID (VANILLA) PO SCH ×3 (08:54→16:33)
--- NOTE | 2018-08-21 09:00 | NUR ---
GPS/RN PT REFUSED AM MEDS OFFERED X3. PT REFUSED FULL SKIN ASSESSMENT WELL
--- NOTE | 2018-08-21 14:52 | NUR ---
GROUP NOTE: Pt was present in group but unable to participate, pt is refusing medication and refusing to eat and is responding to internal stimuli. Pt is selectively mute and will not answer any questions.
[2018-08-21 16:00] VITALS: BP 126/77
[2018-08-21] MEDS: BENZTROPINE MESYLATE (1 MG) 1 MG TABLET PO SCH (16:33)
[2018-08-21] MEDS: HALOPERIDOL 5 MG TABLET PO SCH (16:33)
[2018-08-21] MEDS: HALOPERIDOL LACTATE INJ 5 MG/ML VIAL IM PRN (16:35)
[2018-08-21] MEDS: BENZTROPINE MESYLATE (2MG/2ML) 2 MG/2 ML AMPUL IM PRN (16:35)
--- NOTE | 2018-08-21 17:15 | NUR ---
RN-CO: Noted an open area on right inner buttocks, approx 0.5 x 0.5 cm. ( unable to measure int exactly due to patient's uncooperative behavior). Notified RN wind operations supervisor and Sofia Valero PARTY DIRECTOR. Wound consult was ordered. Initiated plan of care and notified responsible green party, ( Gail Lezama).
--- NOTE | 2018-08-21 17:26 | NUR ---
RN-CO: DR PATE WAS NOTIFIED REGARDING THE OPEN AREA IN THE RIGHT INNER BUTTOCKS AND ORDERED 1:1 SITTER TO WALK PATIENT Q 2 HOURS/ INCLUDING TURNING Q 2 HOURS WHEN APPLICABLE.
--- NOTE | 2018-08-21 19:30 | NUR ---
GPS RN NOTE, RECEIVED PATIENT AWAKE AND IN ROOM NO S/S OR COMPLAINTS OF PAIN AT THIS TIME. PATIENT IS DISPLAYING NO S/S OF APPARENT DISTRESS AT THIS TIME. PATIENT BREATHING IS UNLABORED WITH EQUAL RISE AND FALL OF THE CHEST. PATIENT IS ALERT AND ORIENTED X 1 ON ROOM AIR WITH A SPO2 OF 98%. PATIENT HAS A ONE TO ONE SITTER FOR BEING A HIGH FALL RISK. PATIENT IS REFUSING MEDICATION, CONFUSED, DISORGANIZED, ANXIOUS, UNCOOPERATIVE, UNKEPT, YELLING, SCREAMING, DEMANDING, AND NEEDS REORIENTATION. PATIENT IS CONFUSED BUT DENIES SUICIDE AND HOMICIDAL IDEATIONS AT THIS TIME. PATIENT ASSISTED WITH TURNING AND REPOSITIONING Q2HR AND PRN FOR COMFORT AND CIRCULATION. PATIENT HAS NO NEEDS AT THIS TIME. PATIENT EDUCATED ON THE USE OF THE CALL CORBETT. PATIENT BED SIDE RAILS ARE UP X 2 FOR SAFETY, BED IS LOCKED AND LOW. WILL CONTINUE TO MONITOR AND MAINTAIN SAFETY Q15 MIN WITH THE HELP OF STAFF.
[2018-08-21 20:00] VITALS: BP 117/58
[2018-08-22 08:00] VITALS: BP 143/83
[2018-08-22] MEDS: ENSURE ENLIVE 237 ML LIQUID (VANILLA) PO SCH ×3 (08:49→17:00)
[2018-08-22] MEDS: METOPROLOL TARTRATE 25 MG TABLET PO SCH (08:49)
[2018-08-22] MEDS: BENZTROPINE MESYLATE (1 MG) 1 MG TABLET PO SCH ×2 (08:49→17:00)
[2018-08-22] MEDS: TENOFOVIR DISOPROXIL FUMARATE 300 MG TABLET PO SCH (08:50)
[2018-08-22] MEDS: HALOPERIDOL 5 MG TABLET PO SCH (17:00)
[2018-08-22] MEDS: HALOPERIDOL LACTATE INJ 5 MG/ML VIAL IM PRN (17:14)
[2018-08-22] MEDS: BENZTROPINE MESYLATE (2MG/2ML) 2 MG/2 ML AMPUL IM PRN (17:15)
[2018-08-22] MEDS: GLUCERNA SHAKE 237 ML CAN PO SCH (19:00)
[2018-08-22 20:07] VITALS: BP 118/65
[2018-08-23] MEDS: GLUCERNA SHAKE 237 ML CAN PO SCH ×3 (08:00→17:00)
[2018-08-23] MEDS: BENZTROPINE MESYLATE (1 MG) 1 MG TABLET PO SCH ×2 (09:00→17:00)
[2018-08-23] MEDS: TENOFOVIR DISOPROXIL FUMARATE 300 MG TABLET PO SCH (09:00)
[2018-08-23] MEDS: ENSURE ENLIVE 237 ML LIQUID (VANILLA) PO SCH ×3 (09:00→17:00)
[2018-08-23] MEDS: METOPROLOL TARTRATE 25 MG TABLET PO SCH (09:00)
[2018-08-23 16:00] VITALS: BP 138/75
[2018-08-23] MEDS: HALOPERIDOL 5 MG TABLET PO SCH (17:00)
[2018-08-23] MEDS: BENZTROPINE MESYLATE (2MG/2ML) 2 MG/2 ML AMPUL IM PRN (17:41)
[2018-08-23] MEDS: HALOPERIDOL LACTATE INJ 5 MG/ML VIAL IM PRN (17:41)
[2018-08-23 20:04] VITALS: BP 154/70
[2018-08-24 08:00] VITALS: BP 114/59
[2018-08-24] MEDS: METOPROLOL TARTRATE 25 MG TABLET PO SCH (08:34)
[2018-08-24] MEDS: BENZTROPINE MESYLATE (1 MG) 1 MG TABLET PO SCH ×2 (08:34→16:30)
[2018-08-24] MEDS: TENOFOVIR DISOPROXIL FUMARATE 300 MG TABLET PO SCH (08:36)
[2018-08-24] MEDS: ENSURE ENLIVE 237 ML LIQUID (VANILLA) PO SCH ×3 (08:41→16:30)
--- NOTE | 2018-08-24 11:34 | NUR ---
WOUND CARE CONSULT: PT PRESENTS WITH INCONTINENCE ASSOCIATED SKIN DAMAGE TO RT BUTTOCK. PT NOTED TO HAVE ROUGH SKIN TO THIS AREA. RECOMMENDATIONS MADE FOR SKIN CARE AND PROTECTION. DISCUSSED WITH NURSING STAFF. CURRENT JACQUELINE SCORE IS 16. WILL SEE PRN. CARRASCO IN AGREEMENT WITH PLAN OF CARE. Addendum: 08/24/18 at 1136 by JAYSON GIL WNDNU Amended: Links added.
[2018-08-24] MEDS ORDERED: ENSURE ENLIVE CHOC 237 ML CAN PO SCH (12:00)
[2018-08-24] MEDS ORDERED: Z GUARD REMEDY 2 OZ OINT TP PRN (12:00)
[2018-08-24] MEDS: Z GUARD REMEDY 2 OZ OINT TP SCH (12:16)
--- NOTE | 2018-08-24 14:33 | NUR ---
Group Note: Pt was present in group but unable to participate, pt is refusing medication and refusing to eat and is responding to internal stimuli. Pt is selectively mute and will not answer any questions. Pt is not appropriate for group therapy at this time.
[2018-08-24 16:00] VITALS: BP 115/61
[2018-08-24] MEDS: HALOPERIDOL LACTATE INJ 5 MG/ML VIAL IM PRN (16:22)
[2018-08-24] MEDS: BENZTROPINE MESYLATE (2MG/2ML) 2 MG/2 ML AMPUL IM PRN (16:22)
[2018-08-24] MEDS: HALOPERIDOL 5 MG TABLET PO SCH (16:30)
--- NOTE | 2018-08-24 18:20 | NUR ---
GPS OV RN PATIENT TRANSFERRED TO UNIT FROM GPS, REPORT RECEIVED FROM MADAI RANGEL. PATIENT AWAKE, ALERT AND ORIENTED, NO ACUTE DISTRESS NOTED AT THIS TIME. PATIENT DENIES ANY PAIN OR DISCOMFORT. PATIENT REFUSES TO HAVE DINNER. RISKS AND BENEFITS EXPLAINED BUT TO NO AVAIL, PATIENT STRONGLY REFUSES. SITTER AT BEDSIDE. PATIENT ORIENTED TO ROOM, STAFF, PLAN OF CARE. WILL ENDORSE TO INCOMING SHIFT FOR QUINTON. BED LOCKED AND IN LOW POSITION. BILATERAL UPPER SIDE RAILS UP AND LOCKED.
--- NOTE | 2018-08-24 19:55 | NUR ---
GPS OVERFLOW RN NOTE: PATIENT RESTING IN BED, NO ACUTE DISTRESS NOTED. BREATHING EVEN AND UNLABORED, NO SOB NOTED. SITTER AT BEDSIDE. BED LOCKED AND IN LOWEST POSITION, CALL LIGHT IN REACH. WILL CONTINUE TO MONITOR.
[2018-08-24 20:00] VITALS: BP 145/76
--- NOTE | 2018-08-25 03:40 | NUR ---
GPS OVERFLOW RN NOTE: PATIENT SLEEPING IN BED, NO ACUTE DISTRESS NOTED. BREATHING EVEN AND UNLABORED, NO SOB NOTED. SITTER AT BEDSIDE. BED LOCKED AND IN LOWEST POSITION, CALL LIGHT IN REACH. WILL CONTINUE TO MONITOR.
--- NOTE | 2018-08-25 06:20 | NUR ---
GPS OVERFLOW RN NOTE: PATIENT RESTING IN BED, NO ACUTE DISTRESS NOTED. BREATHING EVEN AND UNLABORED, NO SOB NOTED. SITTER AT BEDSIDE. BED LOCKED AND IN LOWEST POSITION, CALL LIGHT IN REACH. WILL ENDORSE TO DAY NURSE TO CONTINUE WITH PLAN OF CARE.
--- NOTE | 2018-08-25 07:59 | NUR ---
GPS OVERFLOW RN NOTES PATIENT RECEIVED RESTING INSIDE ROOM. SLEEPING, AROUSABLE THROUGH VERBAL AND TACTILE STIMULI. NO ACUTE DISTRESS. NO C/O PAIN OR DISCOMFORT AT THIS TIME. DENIES SI/HI AT THIS TIME. NO IV ACCESS PER GPS PROTOCOL. SITTER AT BEDSIDE. PATIENT PROVIDED WITH CALM, SAFE, HAZARD-FREE ENVIRONMENT. WILL CONTINUE TO MONITOR. BED LOCKED AND IN LOW POSITION. BILATERAL UPPER SIDE RAILS UP AND LOCKED
[2018-08-25] MEDS: Z GUARD REMEDY 2 OZ OINT TP SCH (08:39)
[2018-08-25] MEDS: ENSURE ENLIVE 237 ML LIQUID (VANILLA) PO SCH ×3 (08:39→17:00)
[2018-08-25] MEDS: BENZTROPINE MESYLATE (1 MG) 1 MG TABLET PO SCH ×2 (08:54→17:00)
[2018-08-25] MEDS: METOPROLOL TARTRATE 25 MG TABLET PO SCH (08:54)
[2018-08-25] MEDS: TENOFOVIR DISOPROXIL FUMARATE 300 MG TABLET PO SCH (08:54)
--- NOTE | 2018-08-25 08:54 | NUR ---
GPS OVERFLOW RN NOTES PATIENT REFUSED TO TAKE AM MEDICATIONS. PATIENT STRONGLY REFUSED, SAYING, "ITS POISON". PRESENTED REALITY TO PATIENT. RISKS AND BENEFITS EXPLAINED BUT TO NO AVAIL. WILL CONTINUE TO MONITOR
--- NOTE | 2018-08-25 09:15 | NUR ---
NOEMÍ faxed SNF referral to Everett, Cloth Bleaching Range Back Tender at [facility] Address: [address] [place] [address] for review.
--- NOTE | 2018-08-25 10:35 | NUR ---
SW received a call from KEILA, business support coordinator at [facility] Address: [address] [place] [address] stating pt has been accepted to the facility.
[2018-08-25] MEDS ORDERED: HALOPERIDOL DECANOATE IM 100 MG/ML AMPUL IM ONE (16:00)
[2018-08-25] MEDS: HALOPERIDOL 5 MG TABLET PO SCH (17:00)
[2018-08-25] MEDS: HALOPERIDOL LACTATE INJ 5 MG/ML VIAL IM PRN (17:24)
[2018-08-25] MEDS: BENZTROPINE MESYLATE (2MG/2ML) 2 MG/2 ML AMPUL IM PRN (17:28)
--- NOTE | 2018-08-25 17:30 | NUR ---
GPS OVERFLOW RN NOTES PATIENT SEEN AND EXAMINED BY DR. PATE, NEW ORDERS NOTED AND CARRIED OUT.
--- NOTE | 2018-08-25 17:31 | NUR ---
GPS OVERFLOW RN NOTES PATIENT REFUSED COGENTIN AND HALDOL PO. RISKS AND BENEFITS EXPLAINED BUT TO NO AVAIL. PATIENT RIESED. VERIFIED WITH DR PATE THAT HALOPERIDOL LACTATE IM PRN OK TO GIVE AFTER PATIENT HAVING HALOPERIDOL DECANOATE IM. COGENTIN IM AND HALDOL IM GIVEN ORDERED. WILL CONTINUE TO MONITOR
--- NOTE | 2018-08-25 18:40 | NUR ---
GPS OVERFLOW RN NOTES PATIENT RESTING INSIDE ROOM. AWAKE, ALERT AND ORIENTED, VERBALLY RESPONSIVE AND RESPONDS TO VERBAL AND TACTILE STIMULI. PATIENT PARANOID, REFUSES CARE AND MEDICATIONS, EASILY AGITATED. PROVIDED WITH CALM, SAFE, HAZARD-FREE ENVIRONMENT. SITTER AT BEDSIDE. WILL ENDORSE TO INCOMING SHIFT FOR QUINTON. BED LOCKED AND IN LOW POSITION. BILATERAL UPPER SIDE RAILS UP AND LOCKED
--- NOTE | 2018-08-25 19:45 | NUR ---
RN OPENING NOTES/GPS OVERFLOW RECEIVED REPORT FROM DAYSTXFT JUAN CARLOS BRANDT. FOUND Pt AWAKE OUT OF BED, SITTER AT BEDSIDE IN ROOM. NO S/S OF ACUTE DISTRESS OR SOB NOTED. Pt IS A/OX1, PARANOID & UNCOOPERATIVE. Pt IS VERBAL & CAN ANSWER QUESTIONS. NO IV ACCESS PER GPS PROTOCOL. SAFETY MEASURES IN PLACE. BED LOW, LOCKED, HOB ELEVATED, & SIDE RAILS UP. WILL CONTINUE TO MONITOR Pt THROUGHOUT THE NIGHT FOR SAFETY.
--- NOTE | 2018-08-25 20:00 | NUR ---
RN NOTES Pt REFUSED PM VITAL SIGNS
--- NOTE | 2018-08-26 06:58 | NUR ---
RN CLOSING NOTES/GPS OVERFLOW: NO SIGNIFICANT CHANGES IN Pt's CONDITION. NO S/S OF ACUTE DISTRESS OR SOB NOTED DURING THE NIGHT. Pt IS RESTING IN BED. RESPIRATIONS EVEN AND UNLABORED WITH EQUAL CHEST RISE AND FALL. ALL NEEDS MET AND ATTENDED TO. SAFETY MEASURES IN PLACE. SITTER AT BEDSIDE FOR SAFETY. WILL ENDORSE TO DAYSHIFT RN FOR Pt's QUINTON.
--- NOTE | 2018-08-26 08:00 | NUR ---
RN AM NOTES/GPS OVERFLOW RECEIVED PT AWAKE OUT OF BED, SITTER AT BEDSIDE IN ROOM. NO S/S OF ACUTE DISTRESS OR SOB NOTED. Pt IS A/OX1, PARANOID & UNCOOPERATIVE. Pt IS VERBAL & CAN ANSWER QUESTIONS. NO IV ACCESS PER GPS PROTOCOL. SAFETY MEASURES IN PLACE. BED LOW, LOCKED, HOB ELEVATED, & SIDE RAILS UP. WILL CONTINUE TO MONITOR Pt
[2018-08-26] MEDS: ENSURE ENLIVE 237 ML LIQUID (VANILLA) PO SCH ×3 (09:00→17:00)
[2018-08-26] MEDS: TENOFOVIR DISOPROXIL FUMARATE 300 MG TABLET PO SCH (09:00)
[2018-08-26] MEDS: METOPROLOL TARTRATE 25 MG TABLET PO SCH (09:00)
[2018-08-26] MEDS: BENZTROPINE MESYLATE (1 MG) 1 MG TABLET PO SCH ×2 (09:00→17:00)
--- NOTE | 2018-08-26 09:43 | NUR ---
PT REFUSED ALL HIS AM PO MEDS INSPITE OF MANY ATTEMPTS AND EXPLAINING ITS RISKS AND BENEFITS.PT REFUSED TO EAT HIS BREAKFAST INSPITE OF OFFERING SNACKS OR FOOD OF HIS CHOICE.
[2018-08-26] MEDS: Z GUARD REMEDY 2 OZ OINT TP SCH (09:48)
--- NOTE | 2018-08-26 13:33 | NUR ---
PT SITTING IN BED, NO APPARENT DISTRESS NOTED.CALM BUT CONFUSED AND SUSPICIOUS.REFUSED MEALS/SNACKS NON COMPLIANT WITH MEDS INSPITE OF EXPLAINING ITS RISKS AND BENEFITS.REALITY ORIENTATION DONE. NO C/O PAIN OR DISCOMFORT. SAFETY ENVIRONMENT OBSERVED AT ALL TIMES. SITTER AT BEDSIDE, WILL CONTINUE
[2018-08-26] MEDS: HALOPERIDOL 5 MG TABLET PO SCH (17:00)
[2018-08-26] MEDS: HALOPERIDOL LACTATE INJ 5 MG/ML VIAL IM PRN (18:37)
[2018-08-26] MEDS: BENZTROPINE MESYLATE (2MG/2ML) 2 MG/2 ML AMPUL IM PRN (18:37)
--- NOTE | 2018-08-26 18:38 | NUR ---
PT REFUSED TO TAKE HALDOL 7.5 MG PO AND COGENTIN 0.5 MG PO INSPITE OF EXPLAINING ITS RISKS AND BENEFITS.PT REFUSED DINNER AND HAS BEEN DRINKING LITTLE AMOUNTS OF JUICE.
--- NOTE | 2018-08-26 19:50 | NUR ---
RN INITIAL NOTES: PT IN BED, A/O X2, CONFUSED, SUSPICIOUS,WITHDRAWN, REFUSING TO EAT OR DRINK MEDS, AWARE, EDUCATION PROVIDED REGARDING RISK AND BENEFITS, RIESED FILED. PT ON RA, APPEARS CALM, SITTER AT BED SIDE. REORIENT PT TO REALITY. PT DENIES ANY PLANS OF HURTING HIMSELF. SAFETY PRECAUTIONS FOR FALL ENGAGED, SIDE RAILS UP X3 FOR SAFETY, WILL CONTINUE TO MONITOR PT [id number] FOR SAFETY AND ANY CHANGES IN BEHAVIOR.
[2018-08-26 20:00] VITALS: BP 106/60
--- NOTE | 2018-08-26 20:14 | NUR ---
ADMINISTERED HALDOL AND COGENTIN IM.PT IS RIESED.PT WAS COMPLIANT WITH THE IM MEDS.
--- NOTE | 2018-08-27 06:34 | NUR ---
RN NOTES: PT REFUSED BLOOD DRAW, SPOKED WITH AIRCRAFT SHIPPING CHECKER, PER MINE SUPERVISOR PT KEPT REFUSING EVERY SINGLE DAY, THEY WILL CANCEL THE ORDERS AND JUST REORDER IT IF PT AGREE FOR IT
--- NOTE | 2018-08-27 07:05 | NUR ---
RN CLOSING NOTES: PT REMAINS TO BE WITHDRAWN, PARANOID, SUSPICIOUS. TOTAL HRS OF SLEEP, 4.5 HRS. REFUSING TO EAT ALTHOUGH OFFERED FOOD MULTIPLE TIMES ( SAND WHICH, CRACKERS, JELL O, JUICE). MD AWARE OF PT'S BEHAVIOR. SITTER REMAINS AT BED SIDE. VS REMAINS STABLE, NEEDS ATTENDED. NO IV ACCESS PER GPS POLICY. SAFETY PRECAUTIONS FOR FALL REMAINS ENGAGED, WILL ENDORSE TO DAY RN FOR CONTINUITY OF CARE.
--- NOTE | 2018-08-27 08:00 | NUR ---
MS RN AM NOTES PT IN BED, A/O X2, CONFUSED, SUSPISCIOUS,WITHDRAWN, REFUSING TO EAT OR DRINK MEDS, AWARE, RIRENUD FILED.OFFERED FOOD OF CHOICE E.G. MERA AND [employer]EN[employer] FRIES. WHEN GIVEN TO THE PT,PT THINKS THEY ARE MADE OF PLASTIC WHICH CAN POISON HIM. PT ON RA, APPEARS CALM, SITTER AT BED SIDE.TOOK HIS AM MEDS BUT REFUSED ENSURE.DRANK 2 CARTONS OF ORANGE JUICE. REORIENT PT TO REALITY. PT DENIES ANY PLANS OF HURTING HIMSELF. SAFETY PRECAUTIONS FOR FALL ENGAGED, SIDE RAILS UP X3 FOR SAFETY, WILL CONTINUE TO MONITOR PT [id number] FOR SAFETY AND ANY CHANGES IN BEHAVIOR.
[2018-08-27] MEDS: ENSURE ENLIVE 237 ML LIQUID (VANILLA) PO SCH ×4 (09:00→17:21)
[2018-08-27] MEDS: BENZTROPINE MESYLATE (1 MG) 1 MG TABLET PO SCH ×2 (09:14→16:50)
[2018-08-27] MEDS: METOPROLOL TARTRATE 25 MG TABLET PO SCH (09:14)
[2018-08-27] MEDS: TENOFOVIR DISOPROXIL FUMARATE 300 MG TABLET PO SCH (09:14)
[2018-08-27] MEDS: Z GUARD REMEDY 2 OZ OINT TP SCH (09:15)
[2018-08-27] MEDS: HALOPERIDOL 5 MG TABLET PO SCH (16:50)
--- NOTE | 2018-08-27 19:06 | NUR ---
PT TOOK ALL HIS PO AM AND PM MEDS AND DRANK ALL HIS ENSURE VANILLA NOURISHMENTS.DENIES ANY PAIN OR DISTRESS.WITH I:1 sitter at bedside. PT IS SUSPICIOUS ALWAYS OF BEING FED WITH FOOD MADE OF PLASTICS AND THE WATER IS CHLOROX.NO SI/HI.WILL CONTINUE TO MONITOR.
--- NOTE | 2018-08-27 19:36 | NUR ---
RN INITIAL NOTES: PT IN BED, A/O X2, CONFUSED, WITHDRAWN, HIGLY SUSPISCOUS, PT ON RA, APPEARS CALM, SITTER AT BEDSIDE. REORIENT PT TO REALITY. PT DENIES ANY PLANS OF HURTING HIMSELF.SAFETY PRECAUTIONS FOR FALL ENGAGED, SIDE RAILS UP X3 FOR SAFETY, WILL CONTINUE TO MONITOR PT [id number] FOR SAFETY AND ANY CHANGES IN BEHAVIOR.
--- NOTE | 2018-08-27 19:44 | NUR ---
RN NOTES: CONTACTED GPS COFFEE SOMMELIER, INFORMED THAT PT'S PSYCH HOLD WILL TOMORROW 08/28, NO TIME INDICATED, PER KETTLE OPERATOR CECILIO, HOLD STILL OKAY TILL TOMORROW AM, AND PSYCH MD WILL COME TO REEVALUATE PATIENT AND WILL MAKE NEW ORDER FOR HOLD IF NEEDED
[2018-08-27 20:00] VITALS: BP 122/68
[2018-08-27] MEDS: LORAZEPAM 0.5 MG TABLET PO PRN (20:26)
--- NOTE | 2018-08-27 20:27 | NUR ---
rn notes: pt requested to get his anxiety pill. went to the pt's room, since pt is highly suspicious, paranoid, rn showed the medication to the pt, pt claimed its not the correct ,medication, asked abnother rn to witness while reading and showing tablet pavket/label in front of the pt. pt asked to open the tablet packet in front of him, once rn opened, pt stated it doesnt look good, so he doesnt want to take it. rn rvi witnessed, wasted medication in the omnicell. waste recorded.
--- NOTE | 2018-08-28 06:34 | NUR ---
RN NOTES: RECEIVED CALL FROM PSYCH MD, DR PATE, GIVEN UPDATES REGARDING PT'S BEHAVIOR ESPECIALLY WITH MEDICATION, PER DR PATE, HE WILL WRITE AN ORDER FOR 30 DAY HOLD, PER PT CAN STILL GET THE SHOT (IM COGENTIN, HALDOL IM PRN IF PT REFUSED PO COGENTIN AND PO HALDOL), BUT ONCE 30 DAY HOLD IS IN PLACED, PT CAN NO LONGER RECEIVE THE PRN IM SHOT (HALDOL, COGENTIN) Addendum: 08/28/18 at 0638 by VIKTORIA HANSEN RN ADDENDUM: PER PT CAN STILL GET THE SHOT (IM COGENTIN, HALDOL IM PRN IF PT REFUSED PO COGENTIN AND PO HALDOL) UNTIL SHILPI
--- NOTE | 2018-08-28 06:35 | NUR ---
RN NOTES: RECEIVED CALL FROM PSYCH MD, DR PATE, GIVEN UPDATES REGARDING PT'S BEHAVIOR ESPECIALLY WITH MEDICATION, PER DR PATE, HE WILL WRITE AN ORDER FOR 30 DAY HOLD, PER MD PT CAN STILL GET THE SHOT (IM COGENTIN, HALDOL IM PRN IF PT REFUSED PO COGENTIN AND PO HALDOL) UNTIL TONIGHT, BUT ONCE 30 DAY HOLD IS IN PLACED, PT CAN NO LONGER RECEIVE THE PRN IM SHOT (HALDOL, COGENTIN)
--- NOTE | 2018-08-28 06:45 | NUR ---
rn closing notes: pt in bed, awake, remains to be withdrawn and suspicious. refusing to eat or drink, even if offered food (sealed), and bottled water. pt does not participate in self care activities. refusing help from staff. total hrs of sleep 3. denies any plans of hurting himself. safety precautions for fall remains engaged, side rails up x3 for safety. will endorse to day rn for continuity of care.
--- NOTE | 2018-08-28 07:00 | NUR ---
RN NOTES: DR PATE CAME TO SEE THE PT, PER MD TO HAVE THE PT SEEN BY MEDICAL DOCTOR FOR IV FLUID RECOMMENDATION PT SEEMS TO BE WEAK, NOT EATING. PER MD TO HAVE LABS DRAWN, MADE AWARE THAT FOR COUPLE OF DAYS PT BEEN REFUSING LAB DRAW, PER MD TO TRY AGAIN, LUCKILY PAINTER HELPER IN THE UNIT, ABLE TO DRAW BLOOD AT THIS TIME. ENDORSE TO DAY JUAN CARLOS CUI REGARDING REFERRAL TO MEDICAL DOCTOR, PT NEEDS TO BE SEEN BY HOSPITALIST.
[2018-08-28 07:27] LABS: BASOPHILS % (AUTO) 0.6 % (0.0-2.0); EOSINOPHILS % (AUTO) 0.3 % (0.0-6.0); HEMATOCRIT 39 % (39-51); HEMOGLOBIN 12.9 g/dL (13.5-17.5); LYMPHOCYTES # (AUTO) 2.7 /CMM (0.8-4.8); LYMPHOCYTES % (AUTO) 46.3 % (20.0-44.0); MEAN CORPUSCULAR HGB CONC 33 g/dl (31.0-36.0); MEAN CORPUSCULAR VOLUME 93 fL (80-96); MONOCYTES # (AUTO) 0.7 /CMM (0.1-1.30); MONOCYTES % (AUTO) 12.1 % (2.0-12.0); NEUTROPHILS # (AUTO) 2.4 /CMM (1.8-8.9); NEUTROPHILS % (AUTO) 40.7 % (43.0-81.0); PLATELET COUNT (AUTO) 237 /CMM (150-450); RED BLOOD CELL COUNT(AUTO) 4.19 MIL/uL (4.5-6.0); WHITE BLOOD COUNT (AUTO) 5.9 K/uL (4.3-11.0)
[2018-08-28 07:48] LABS: ALANINE AMINOTRANSFERASE 24 U/L (12-78); ALBUMIN 3.1 g/dL (3.4-5.0); ALKALINE PHOSPHATASE 75 U/L (46-116); ASPARTATE AMINOTRANSFERASE 21 U/L (15-37); BILIRUBIN,TOTAL 0.4 mg/dL (0.2-1.0); CALCIUM, SERUM 9.5 mg/dL (8.5-10.1); CARBON DIOXIDE 31 mmol/L (21-32); CHLORIDE 105 mmol/L (98-107); CREATININE 1.4 mg/dL (0.6-1.3); GLUCOSE 96 mg/dL (74-106); MAGNESIUM 2.1 mg/dL (1.8-2.4); PHOSPHORUS 2.3 mg/dL (2.5-4.9); POTASSIUM 4.2 mmol/L (3.5-5.1); SODIUM SERUM 142 mmol/L (136-145); TOTAL PROTEIN, SERUM 7.7 g/dL (6.4-8.2); UREA NITROGEN, BLOOD 42 mg/dL (7-18)
[2018-08-28 08:00] VITALS: BP 130/75
[2018-08-28] MEDS ORDERED: HALOPERIDOL DECANOATE IM 100 MG/ML AMPUL IM ONE (08:00)
[2018-08-28] MEDS: METOPROLOL TARTRATE 25 MG TABLET PO SCH (08:38)
[2018-08-28] MEDS: BENZTROPINE MESYLATE (1 MG) 1 MG TABLET PO SCH ×2 (08:38→16:42)
[2018-08-28] MEDS: TENOFOVIR DISOPROXIL FUMARATE 300 MG TABLET PO SCH (08:38)
[2018-08-28] MEDS: ENSURE ENLIVE 237 ML LIQUID (VANILLA) PO SCH ×3 (08:39→17:34)
[2018-08-28] MEDS: Z GUARD REMEDY 2 OZ OINT TP SCH (09:00)
--- NOTE | 2018-08-28 09:30 | NUR ---
HALDOL IM ONE TIME ORDER ADMINISTRATED
[2018-08-28] MEDS: LORAZEPAM 0.5 MG TABLET PO PRN (09:56)
--- NOTE | 2018-08-28 09:56 | NUR ---
prn Ativan given per patient's request.
--- NOTE | 2018-08-28 11:50 | NUR ---
patient refused lunch.
[2018-08-28] MEDS ORDERED: NEUTRA PHOS 1 POWD.PACKET PO ONE (12:00)
[2018-08-28 16:00] VITALS: BP 131/77
[2018-08-28] MEDS: HALOPERIDOL 5 MG TABLET PO SCH (16:43)
--- NOTE | 2018-08-28 18:10 | NUR ---
PATIENT TRANSFERRED TO GPS . REPORT GIVEN TO PETRONA RANGEL
--- NOTE | 2018-08-28 18:49 | NUR ---
PT TRANSFERRED TO ROOM 220-1 FROM MEDD/SURG SITTER AT BEDSIDE. PT MEDICALLY CLEARED AND ON 5270 (30 HOLD). MD EID. PT REMAINS CALM AND DIRECTABLE WHILE SITTER PRESENT PT REQUESTED MEAL TRAY CHARGE NURSE ORDERED ONE. WILL MONITOR AND GIVEN RN REPORT FOR CONTINUATION OF CARE.
[2018-08-29 08:00] VITALS: BP 154/84
[2018-08-29] MEDS: METOPROLOL TARTRATE 25 MG TABLET PO SCH (08:18)
[2018-08-29] MEDS: BENZTROPINE MESYLATE (1 MG) 1 MG TABLET PO SCH ×2 (08:18→16:39)
[2018-08-29] MEDS: TENOFOVIR DISOPROXIL FUMARATE 300 MG TABLET PO SCH (08:18)
[2018-08-29] MEDS: Z GUARD REMEDY 2 OZ OINT TP SCH (08:19)
[2018-08-29] MEDS: ENSURE ENLIVE 237 ML LIQUID (VANILLA) PO SCH ×3 (08:19→16:39)
[2018-08-29 16:00] VITALS: BP 112/62
[2018-08-29] MEDS: HALOPERIDOL 5 MG TABLET PO SCH (16:39)
--- NOTE | 2018-08-29 18:06 | NUR ---
GPS/RN PATIENT REFUSED WOUND TREATMENT. OFFERED X 3 WITH RISKS AND BENEFITS EXPLAINED CONTINUE TO REFUSED.
[2018-08-29 20:00] VITALS: BP 115/60
--- NOTE | 2018-08-30 06:43 | NUR ---
GPS RN NOTES: DURING SHIFT PT. BEHAVIOR VERY UNCOOPERTIVE , EASILY GETS AGITATED, TRYING TO GET OUT THE BED ,PT. REPOSITION TURN EVERY Q 2 HOURS, KEPT CLEAN AND DRY 1:1 SITTER AT BED SIDE FOR PT. SAFETY AND BEHAVIOR
--- NOTE | 2018-08-30 06:50 | NUR ---
GPS RN NOTES; PT. REFUSED AM LABS AT THIS TIME, ENCOURAGED EXPLINED RISKS AND BENEFITS STILL REFUSED, ENDORSE TO ON COMING NURSE FOR CONTINUITY OF CARE.
--- NOTE | 2018-08-30 07:30 | NUR ---
ms rn received on bed, no distress noted, w/ sitter for safety and comfort.
[2018-08-30 08:00] VITALS: BP 116/64
[2018-08-30] MEDS: ENSURE ENLIVE 237 ML LIQUID (VANILLA) PO SCH ×3 (09:00→17:49)
[2018-08-30] MEDS: METOPROLOL TARTRATE 25 MG TABLET PO SCH (09:07)
[2018-08-30] MEDS: BENZTROPINE MESYLATE (1 MG) 1 MG TABLET PO SCH ×2 (09:07→16:08)
[2018-08-30] MEDS: LORAZEPAM 0.5 MG TABLET PO PRN (09:11)
[2018-08-30] MEDS: Z GUARD REMEDY 2 OZ OINT TP SCH (09:12)
[2018-08-30] MEDS: TENOFOVIR DISOPROXIL FUMARATE 300 MG TABLET PO SCH (09:13)
--- NOTE | 2018-08-30 12:31 | NUR ---
RECEIVED REPORT FROM KIM RANGEL
--- NOTE | 2018-08-30 13:00 | NUR ---
ms rn patient transferred to [facility] overflow w/ sitter per order,no distress noted.
--- NOTE | 2018-08-30 13:00 | NUR ---
received patient awake a/o x1 , admitted to room 206 with sitter. VS are stable and within normal range. On room air breathing unlabored and even. Will continue to monitor.
[2018-08-30] MEDS: HALOPERIDOL 5 MG TABLET PO SCH (16:11)
--- NOTE | 2018-08-30 17:50 | NUR ---
PATIENT REFUSED DINNER BUT DRUNK ALL INSURE .
--- NOTE | 2018-08-30 19:37 | NUR ---
RN GPS OPENING NOTES RECEIVED PATIENT ASLEEP IN BED. EASILY AROUSABLE BUT WITHDRAWN/ FLAT AFFECT. BREATHING EVEN AND UNLABORED. NO SOB. CURRENTLY WITH NO COMPLAINTS OF PAIN OR DISCOMFORT. NO FACIAL GRIMACING. PATIENT HAS NO IV PER GPS PROTOCOL. SKIN DRY AND WARM TO TOUCH. AFEBRILE. ALL OTHER NEEDS METS. SAFETY MEASURES IN PLACE. SITTER AT BEDSIDE. WILL CONTINUE TO MONITOR.
--- NOTE | 2018-08-30 19:38 | NUR ---
pt in bed, awake,very suspicious. sitter at bedside. safety precautions for fall in place, side rails up x3 for safety. will endorse to next shift rn for continuity of care.
--- NOTE | 2018-08-30 20:00 | NUR ---
RN GPS NOTES PATIENT REFUSED VITAL SIGNS TO BE CHECKED DESPITE EXPLANATION OF RISKS AND BENEFITS. WILL CONTINUE TO MONITOR.
--- NOTE | 2018-08-30 22:30 | NUR ---
RN GPS NOTES PATIENT REFUSED TO HAVE PICTURE TAKEN OF HIS BUTTOCKS/SACRAL. PATIENT DOES NOT WANT TO BE TOUCHED.
--- NOTE | 2018-08-30 23:20 | NUR ---
RN GPS NOTES PATIENT REFUSED BLOOD DRAW DESPITE EXPLANATION OF RISKS AND BENEFITS X3. PATIENT HAS BEEN REFUSING SINCE YESTERDAY. WILL CONTINUE TO MONITOR.
--- NOTE | 2018-08-31 06:30 | NUR ---
RN GPS CLOSING NOTES PATIENT RESTING IN BED. NO ACUTE CHANGES THROUGHOUT SHIFT. BREATHING EVEN AND UNLABORED. NO SOB. NO COMPLAINTS OF PAIN OR DISCOMFORT. PATIENT HAS NO IV PER GPS PROTOCOL. ALL OTHER NEEDS METS. SAFETY MEASURES IN PLACE. SITTER AT BEDSIDE. WILL ENDORSE TO ONCOMING NURSE FOR QUINTON.
--- NOTE | 2018-08-31 07:20 | NUR ---
GPS/MS RN INITIAL NOTES Report received at bedside. Patient received in bed, awake and verbally responsive. On one-on-one sitter for safety. No signs and symptoms of distress. Safety measures in place. Will continue to monitor and assess patient.
--- NOTE | 2018-08-31 09:00 | NUR ---
RN-CO: DR PATE ORDERED TO DISCONTINUE HOLD AND DISCHARGE PATIENT, NOTED.
[2018-08-31] MEDS: ENSURE ENLIVE 237 ML LIQUID (VANILLA) PO SCH ×3 (09:05→16:51)
[2018-08-31] MEDS: TENOFOVIR DISOPROXIL FUMARATE 300 MG TABLET PO SCH (09:14)
[2018-08-31 09:16] VITALS: BP 132/88
[2018-08-31] MEDS: METOPROLOL TARTRATE 25 MG TABLET PO SCH (09:16)
[2018-08-31] MEDS: BENZTROPINE MESYLATE (1 MG) 1 MG TABLET PO SCH ×2 (09:20→16:51)
[2018-08-31] MEDS: Z GUARD REMEDY 2 OZ OINT TP SCH (10:07)
--- NOTE | 2018-08-31 10:27 | NUR ---
DISCHARGE NOTE: Pt will be discharged at 1:00pm via [facility] to [facility] Address: [address] [place] [address] . Pts friend Gail [phone] has been notified and agrees with discharge plan. Pts mood is paranoid with congruent affect. Pt is responding to auditory hallucinations. Pt denied suicidal/homicidal ideation. Pt will be under the care of Psychiatrist: Dr. Lam Address: [address] [place] [address] and Concrete Block Plant Supervisor: Dr Martinez Address: [address] [address] [phone]. The multidisciplinary exit care form was done, printed, signed, and given to the patient.
--- NOTE | 2018-08-31 12:30 | NUR ---
MS RN NOTES Dressings changed. Treatment rendered as ordered. Pain meds given prior to dressing change. Discharge instructions provided: verbalized understanding. Exitcare done. Discharge papers signed. Questions and concerns addressed. Belongings form reviewed and signed by patient. Antibiotic to be given while awaiting for social media content manager.
--- NOTE | 2018-08-31 12:44 | NUR ---
MS RN NOTES Called [facility] and paged Dr. Vicky Vaughn for discharge med recon orders. Awaiting for call back
--- NOTE | 2018-08-31 14:30 | NUR ---
GPS/MS GERICARE AIDE NOTES Report given to Maris Lazaro of [facility] [phone]. Med-Recon has been faxed to [phone]. Patient is alert and oriented x1 to self only, verbally responsive, have episodes of refusal care and treatment. Discharge instructions provided. Exit care done. Discharge papers provided to [employer] transporters. No IV access. No SOB/labored breathing noted. Not in any type of distress. Personal medication picked up from pharmacy and handed to [employer] transporters. All belongings with patient. All needs provided and met.
[2018-08-31] MEDS: HALOPERIDOL 5 MG TABLET PO SCH (16:51)
== END 2018-08-31 18:30 | DRG 885 ==
LOC: GPS 16:39 → GPSOV2 08-24 18:15 → GPS 08-28 18:11 → GPSOV2 08-30 12:25
PROVIDERS: ADMIT Psychiatry & Neurology Psychiatry; ATTEND Nurse Practitioner Acute Care
DX: F20.0 Paranoid schizophrenia (principal); N18.9 Chronic kidney disease, unspecified; N17.0 Acute kidney failure with tubular necrosis; E44.0 Moderate protein-calorie malnutrition; R64 Cachexia; Z68.1 Body mass index [BMI] 19.9 or less, adult; F29 Unspecified psychosis not due to a substance or known physiological condition; F41.9 Anxiety disorder, unspecified; I12.9 Hypertensive chronic kidney disease with stage 1 through stage 4 chronic kidney disease, or unspecified chronic kidney disease; F32.9 Major depressive disorder, single episode, unspecified; F03.90 Unspecified dementia, unspecified severity, without behavioral disturbance, psychotic disturbance, mood disturbance, and anxiety; M62.84 Sarcopenia; Z91.14 Patient's other noncompliance with medication regimen; R32 Unspecified urinary incontinence; R62.7 Adult failure to thrive; R41.82 Altered mental status, unspecified
CPT/HCPCS: 36415; 80053-TC; 83735-TC; 84100-TC; 85025-TC; 87081-TC; 97530-TC; J0515; J1630; J1631